=== PATIENT | female | born 1930 | race Caucasian/White ===

== ENCOUNTER 2017-01-05 01:06 | Inpatient (IN) | payer OTHER, MEDICARE ==
[~2017-01-05] VITALS: Ht 165.1 cm; Wt 68.0 kg
[2017-01-05] MEDS ORDERED: AMLODIPINE BESYL5 M1 PO (01:38)
[2017-01-05] MEDS ORDERED: BYSTOLIC10 M1 PO (01:39)
[2017-01-05] MEDS ORDERED: ASPIRIN81 M4 PO (01:39)
--- NOTE | 2017-01-05 01:41 | NUR ---
TRIAGE: PATIENT TO ER FROM HOME REPORTING S/P "FORCEFUL BM ON WEDNESDAY AND HAVING ENTIRE ABD PAIN SINCE." PATIENT ALSO REPORTS "THINK I HAVE BEEN LEAKING STOOL SINCE." REPORTING +NAUSEA AT THIS TIME, DENIES VOMITTING. +DIARRHEA, TOOK OTC LAXATIVE "THINKING I HAD TO GO AGAIN." DENIES URINARY DIFFICULTIES.
--- NOTE | 2017-01-05 01:50 | ED GI/GU/ABDOMINAL COMPLAINT ---
History of Present Illness General Chief Complaint: Abdominal Pain/Flank Pain Stated Complaint: ABD PAIN Source: patient, family Exam Limitations: no limitations Vital Signs & Intake/Output Vital Signs & Intake/Output Vital Signs Date Time Temp Pulse Resp B/P B/P Pulse O2 O2 Flow FiO2 Mean Ox Delivery Rate 01/05 0511 98.3 83 18 142/74 97 Room Air 01/05 0145 97.6 85 18 145/70 96 Room Air Allergies Coded Allergies: NO KNOWN ALLERGIES (01/05/17) Reconcile Medications Amlodipine Besylate 5 MG TABLET 1 TAB PO DAILY HTN (Reported) Aspirin (Aspirin*) 81 MG TAB.CHEW 1 TAB PO DAILY HEART (Reported) Nebivolol HCl (Bystolic) 10 MG TABLET 1 TAB PO DAILY (Reported) Triage Note: TRIAGE: PATIENT TO ER FROM HOME REPORTING S/P "FORCEFUL BM ON WEDNESDAY AND HAVING ENTIRE ABD PAIN SINCE." PATIENT ALSO REPORTS "THINK I HAVE BEEN LEAKING STOOL SINCE." REPORTING +NAUSEA AT THIS TIME, DENIES VOMITTING. +DIARRHEA, TOOK OTC LAXATIVE "THINKING I HAD TO GO AGAIN." DENIES URINARY DIFFICULTIES. Triage Nurses Notes Reviewed? yes ? N Is pt currently ? No Onset: Abrupt Duration: day(s): (3) Timing: recent history No Modifying Factors: none Associated Symptoms: abdominal pain HPI: This is an 86-year-old female who presents to the ER with her sister for chief complaint of 3 days of persistent lower abdominal pain after having a very large bowel movement on Wednesday. Patient denies any blood in her stool. She has been nauseous but has not vomited. She states she feels hunger but is afraid to eat. Since the episode on Wednesday she has been incontinent of urine. She is also been incontinent of stool. She denies any fever or chills. No radiation of the pain. She states the pain in his her left and right lower quadrants. Past History Travel History Traveled to [place] past 21 day No Medical History Any Pertinent Medical History? 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 No Review of Systems Review of Systems Constitutional: Denies: chills, fever. EENTM: Reports: no symptoms. Respiratory: Denies: cough, short of breath. Cardiovascular: Denies: chest pain. GI: Reports: abdominal pain, constipation, nausea. Denies: vomiting. Genitourinary: Reports: no symptoms. Musculoskeletal: Denies: back pain. Skin: Reports: no symptoms. Neurological/Psychological: Reports: no symptoms. Hematologic/Endocrine: Denies: bruising, bleeding, polyuria, polydipsia. Immunologic/Allergic: Denies: splenectomy. All Other Systems: Reviewed and Negative Physical Exam Physical Exam General Appearance: well developed/nourished, alert, awake Head: atraumatic, normal appearance Eyes: Bilateral: normal appearance, PERRL, EOMI. Ears, Nose, Throat, Mouth: hearing grossly normal, moist mucous membrane Neck: normal inspection, supple, full range of motion Respiratory: normal breath sounds, chest non-tender, no respiratory distress Cardiovascular: regular rate/rhythm Gastrointestinal: normal bowel sounds, soft, tenderness (SUPRAPUBIC/LLQ) Extremities: normal range of motion Neurologic/Psych: no motor/sensory deficits, awake, alert, oriented x 3 Progress Differential Diagnosis: diverticulitis, perforated viscous, SBO Plan of Care: Orders Procedure Date/time Status Admit to inpatient 01/05 0537 Active LACTIC ACID 01/05 0457 Active TYPE & SCREEN (NOT X-MATCH) 01/05 443 Active URINALYSIS 01/05 157 Complete LACTIC ACID 01/05 157 Complete COMPREHENSIVE METABOLIC PANEL 01/05 157 Complete CBC WITHOUT DIFFERENTIAL 01/05 157 Complete Laboratory Tests 01/05/17 0443: Lactic Acid Pending 01/05/17 0340: Urinalysis LIGHT H, Urine Color YEL, Urine Clarity CLEAR, Urine pH 6.0, Ur Specific [place] 1.025, Urine Protein 30 H, Urine Ketones NEG, Urine Nitrite NEG, Urine Bilirubin NEG, Urine Urobilinogen 0.2, Ur Leukocyte Esterase NEG, Ur Microscopic SEDIMENT EXAMINED, Urine RBC 1-3, Urine WBC 1-3 H, Ur Epithelial Cells FEW, Urine Bacteria RARE H, Urine Mucus FEW, Urine Hemoglobin MOD H, Urine Glucose NEG 01/05/17 0205: Anion Gap 9, Estimated GFR 47 L, BUN/Creatinine Ratio 17.3, Glucose 145 H, Lactic Acid 0.9, Calcium 9.1, Total Bilirubin 0.4, AST 24, ALT 28, Alkaline Phosphatase 60, Total Protein 6.7, Albumin 4.1, Globulin 2.6, Albumin/Globulin Ratio 1.6, CBC w Diff NO MAN DIFF REQ, RBC 4.24, MCV 89.5, MCH 30.3, RDW 14.5, MPV 8.3, Gran % 81.7 H, Lymphocytes % 8.7 L, Monocytes % 7.8, Eosinophils % 1.5, Basophils % 0.3, Absolute Granulocytes 9.4 H, Absolute Lymphocytes 1.0 L, Absolute Monocytes 0.9 H, Absolute Eosinophils 0.2, Absolute Basophils 0, PUBS MCHC 33.8 4:30 AM D/W DR ACEVES. SURGICAL PA PAGED. CT CONSISTENT WITH SIGMOID VOLVULUS. 5:06 AM D/W DR AMIE JIMENEZ - WILL CONSULT ON PATIENT. (MAYANK JOHNSON,RAFFI) Diagnostic Imaging: Viewed by Me: CT Scan. Discussed w/RAD: CT Scan. Radiology Impression: PATIENT: SULLY CARROLL PRESENT AGE: 86 PATIENT ACCOUNT NO: [id number] : [birth year] LOCATION: [facility] ORDERING PHYSICIAN: RAFFI SHAH MD SERVICE DATE: 01/05/17 EXAM TYPE: CAT - CT ABD & PELVIS W IV CONTRAST EXAMINATION: CT ABDOMEN AND PELVIS WITH CONTRAST CLINICAL INFORMATION: Lower abdominal pain COMPARISON: None TECHNIQUE: Multidetector volumetric imaging was performed of the abdomen and pelvis before and after the IV administration of 95 mL of Optiray intravenous contrast. Sagittal and coronal reformatted images were obtained on the technologist's workstation. DLP: 463.81 mGy-cm FINDINGS: LUNG BASES: The visualized lung bases are unremarkable. LIVER, GALLBLADDER, AND BILIARY TREE: There is intrahepatic and extra hepatic bile duct dilatation. Patient status post cholecystectomy. PANCREAS: Unremarkable. SPLEEN: Unremarkable. ADRENAL GLANDS: Unremarkable. KIDNEYS AND URETERS: Pedunculated cortical cyst at the upper pole right kidney measuring 5.9 cm. There are smaller cortical cysts bilateral. There are parapelvic cysts bilateral greater on left than right. No renal or ureteral calculus. No hydronephrosis. BLADDER: Unremarkable. GASTROINTESTINAL TRACT: The sigmoid colon is redundant and there is a sigmoid volvulus. This volvulus extends up into the right upper quadrant of the abdomen anterior to the liver extending of the right diaphragm is elevated. There is some fluid around this bowel loop of the bowel loop is not dilated. There are diverticula of the sigmoid. There is no free air. In the pelvis there is fluid and stool in the rectum and sigmoid and there is fluid in the cul-de-sac. The wall the rectum and sigmoid may be edematous but difficult to assess the presence of fluid. There is marked diverticulosis of the descending colon in the pelvis without diverticulitis. Moderate volume of stool in colon. The appendix is normal. The small bowel loops are normal. ABDOMINAL WALL: No significant hernia is appreciated. LYMPH NODES: Normal. VASCULAR: Extensive atherosclerotic vascular calcifications of the aorta and iliac vessels. PELVIC VISCERA: Small amount of fluid in the endometrial cavity. Endometrial cavity measures 1 cm in diameter. In a patient of this age further evaluation of the endometrium should be considered. OSSEOUS STRUCTURES: Multilevel degenerative change of the spine disc height narrowing and endplate spurs and facet joint arthrosis. Compression deformity inferior endplate of L3 appears chronic with sclerosis of the subchondral bone. IMPRESSION: 1. Sigmoid volvulus with no evidence of possible ischemia by the presence of fluid in the peritoneal cavity. Edema and fluid around the distal rectum sigmoid in the pelvis as well. 2. Marked diverticulosis of colon without diverticulitis. 3. Fluid in the endometrial cavity. In a patient of this age further assessment should be considered. This critical result was discussed with Dr. Shah on 01/05/2017, 4:10 AM and it was ascertained that the content and urgency of the report was understood at the time of direct communication. DICTATED BY: AKIL ESQUIVEL MD DATE/TIME DICTATED:355 SCREEN WRITER:PIETRO DATE/TIME TRANSCRIBED:01/05/17355 CONFIDENTIAL, DO NOT COPY WITHOUT APPROPRIATE AUTHORIZATION. <Electronically signed in Other Vendor System> SIGNED BY: AKIL ESQUIVEL MD 01/05/17 0418 Initial ED EKG: none Departure Departure Time of Disposition: 536 Disposition: STILL A PATIENT Condition: Stable Clinical Impression Primary Impression: Volvulus of sigmoid colon Referrals: MARE JOHNSON,CED [place] (PCP/Family) Departure Forms: Customer Survey General Discharge Information Admission Note Spoke With: KETAN JOHNSON,PETER N. Documentation of Exam: Documentation of any treatments & extenuating circumstances including Concerns Regarding Discharge (functional status, medication knowledge or non-compliance, living conditions, etc.) that warrant an admission rather than observation: [IV FLUIDS, NPO, GI CONSULT DR JIMENEZ, POSSIBLE OR]
--- NOTE | 2017-01-05 01:55 | NUR ---
STONEY BY DR TALLEY
--- NOTE | 2017-01-05 02:00 | NUR ---
LABS[facility]AN--SST,BLUE,YOUNG,LAV ALL SENT TO LAB
--- NOTE | 2017-01-05 02:10 | NUR ---
IV INSERTED MORPHINE GIVEN ORDERED.
[2017-01-05 02:24] LABS: ABSOLUTE BASOPHIL COUNT 0 /CUMM (0.0-0.2); ABSOLUTE EOSINOPHIL COUNT 0.2 /CUMM (0.0-0.7); ABSOLUTE GRANULOCYTE CT 9.4 /CUMM (1.4-6.5); ABSOLUTE MONOCYTE COUNT 0.9 /CUMM (0.10-0.60); BASOPHIL % 0.3 % (0.0-2.0); EOSINOPHIL % 1.5 % (0-5); GRANULOCYTE % 81.7 % (42.2-75.2); MEAN CORPUSCULAR HGB 30.3 PG (27.0-31.0); MEAN CORPUSCULAR HGB CONC 33.8 G/DL (33.0-37.0); MEAN CORPUSCULAR VOLUME 89.5 FL (81.0-99.0); MEAN PLATELET VOLUME 8.3 FL (7.4-10.4); PLATELET COUNT 264 /CUMM (130-400); RBC DISTRIBUTION WIDTH 14.5 % (11.5-14.5); RED BLOOD CELL CT 4.24 /CUMM (4.20-5.40); WHITE BLOOD CELL COUNT 11.5 /CUMM (4.8-10.8)
--- NOTE | 2017-01-05 03:16 | NUR ---
PT TO CAT SCAN
--- NOTE | 2017-01-05 03:30 | NUR ---
RETD FROM CT
--- NOTE | 2017-01-05 03:47 | NUR ---
OOB TO BR==VOIDED SPEC X 3 TO LAB
--- NOTE | 2017-01-05 04:18 | CT SCAN REPORT ---
EXAMINATION: CT ABDOMEN AND PELVIS WITH CONTRAST CLINICAL INFORMATION: Lower abdominal pain COMPARISON: None TECHNIQUE: Multidetector volumetric imaging was performed of the abdomen and pelvis before and after the IV administration of 95 mL of Optiray intravenous contrast. Sagittal and coronal reformatted images were obtained on the technologist's workstation. DLP: 463.81 mGy-cm FINDINGS: LUNG BASES: The visualized lung bases are unremarkable. LIVER, GALLBLADDER, AND BILIARY TREE: There is intrahepatic and extra hepatic bile duct dilatation. Patient status post cholecystectomy. PANCREAS: Unremarkable. SPLEEN: Unremarkable. ADRENAL GLANDS: Unremarkable. KIDNEYS AND URETERS: Pedunculated cortical cyst at the upper pole right kidney measuring 5.9 cm. There are smaller cortical cysts bilateral. There are parapelvic cysts bilateral greater on left than right. No renal or ureteral calculus. No hydronephrosis. BLADDER: Unremarkable. GASTROINTESTINAL TRACT: The sigmoid colon is redundant and there is a sigmoid volvulus. This volvulus extends up into the right upper quadrant of the abdomen anterior to the liver extending of the right diaphragm is elevated. There is some fluid around this bowel loop of the bowel loop is not dilated. There are diverticula of the sigmoid. There is no free air. In the pelvis there is fluid and stool in the rectum and sigmoid and there is fluid in the cul-de-sac. The wall the rectum and sigmoid may be edematous but difficult to assess the presence of fluid. There is marked diverticulosis of the descending colon in the pelvis without diverticulitis. Moderate volume of stool in colon. The appendix is normal. The small bowel loops are normal. ABDOMINAL WALL: No significant hernia is appreciated. LYMPH NODES: Normal. VASCULAR: Extensive atherosclerotic vascular calcifications of the aorta and iliac vessels. PELVIC VISCERA: Small amount of fluid in the endometrial cavity. Endometrial cavity measures 1 cm in diameter. In a patient of this age further evaluation of the endometrium should be considered. OSSEOUS STRUCTURES: Multilevel degenerative change of the spine disc height narrowing and endplate spurs and facet joint arthrosis. Compression deformity inferior endplate of L3 appears chronic with sclerosis of the subchondral bone. IMPRESSION: 1. Sigmoid volvulus with no evidence of possible ischemia by the presence of fluid in the peritoneal cavity. Edema and fluid around the distal rectum sigmoid in the pelvis as well. 2. Marked diverticulosis of colon without diverticulitis. 3. Fluid in the endometrial cavity. In a patient of this age further assessment should be considered. This critical result was discussed with Dr. Shah on 01/05/2017, 4:10 AM and it was ascertained that the content and urgency of the report was understood at the time of direct communication.
--- NOTE | 2017-01-05 04:20 | NUR ---
DR TALLEY IN TO RE EVAL AND DISCUSS CT RESULTS.
--- NOTE | 2017-01-05 05:00 | NUR ---
CO ABD PAIN "COMING AND GOING" DR TALLEY AWARE. IV ACETAMINOPHEN ORDERED
--- NOTE | 2017-01-05 05:10 | NUR ---
SURG PA HERE TO EVAL
[2017-01-05] MEDS ORDERED: POLYETHYLENE G255 GM PO (05:56)
[2017-01-05] MEDS ORDERED: METAMUCIL FIBE3.4 GM PO (05:57)
--- NOTE | 2017-01-05 06:04 | Admission Core Measures ---
Admission Lab Results I reviewed the following labs: Laboratory Tests 01/05 01/05 0443 0340 Chemistry Lactic Acid (0.7 - 2.1 mmol/L) 0.8 Urines Urinalysis LIGHT H Urine Color (YEL,AMB,STR) YEL Urine Clarity (CLEAR) CLEAR Urine pH (5.0 - 8.0) 6.0 Ur Specific [place] (1.001 - 1.035) 1.025 Urine Protein (NEG,<30 MG/DL) 30 H Urine Ketones (NEG) NEG Urine Nitrite (NEG) NEG Urine Bilirubin (NEG) NEG Urine Urobilinogen (0.1 - 1.0 EU/dl) 0.2 Ur Leukocyte Esterase (NEG) NEG Ur Microscopic SEDIMENT EXAMINED Urine RBC (0 - 5 /HPF) 1-3 Urine WBC (0 - 2 /HPF) 1-3 H Ur Epithelial Cells (NONE,FEW) FEW Urine Bacteria (NEG/NONE) RARE H Urine Mucus (FEW,NONE) FEW Urine Hemoglobin (NEG) MOD H Urine Glucose (N MG/DL) NEG 01/05 0205 Chemistry Sodium (137 - 145 mmol/L) 133 L Potassium (3.5 - 5.1 mmol/L) 4.1 Chloride (98 - 107 mmol/L) 100 Carbon Dioxide (22 - 30 mmol/L) 23 Anion Gap (5 - 16) 9 BUN (7 - 17 mg/dL) 19 H Creatinine (0.5 - 1.0 mg/dL) 1.1 H Estimated GFR (>60 ml/min) 47 L BUN/Creatinine Ratio (7 - 25 %) 17.3 Glucose (65 - 99 mg/dL) 145 H Lactic Acid (0.7 - 2.1 mmol/L) 0.9 Calcium (8.4 - 10.2 mg/dL) 9.1 Total Bilirubin (0.2 - 1.3 mg/dL) 0.4 AST (14 - 36 U/L) 24 ALT (9 - 52 U/L) 28 Alkaline Phosphatase (<127 U/L) 60 Total Protein (6.3 - 8.2 g/dL) 6.7 Albumin (3.5 - 5.0 g/dL) 4.1 Globulin (1.9 - 4.2 gm/dL) 2.6 Albumin/Globulin Ratio (1.1 - 2.2 %) 1.6 Hematology CBC w Diff NO MAN DIFF REQ WBC (4.8 - 10.8 /CUMM) 11.5 H RBC (4.20 - 5.40 /CUMM) 4.24 Hgb (12.0 - 16.0 G/DL) 12.8 Hct (37 - 47 %) 38.0 MCV (81.0 - 99.0 FL) 89.5 MCH (27.0 - 31.0 PG) 30.3 RDW (11.5 - 14.5 %) 14.5 Plt Count (130 - 400 /CUMM) 264 MPV (7.4 - 10.4 FL) 8.3 Gran % (42.2 - 75.2 %) 81.7 H Lymphocytes % (20.5 - 51.1 %) 8.7 L Monocytes % (1.7 - 9.3 %) 7.8 Eosinophils % (0 - 5 %) 1.5 Basophils % (0.0 - 2.0 %) 0.3 Absolute Granulocytes (1.4 - 6.5 /CUMM) 9.4 H Absolute Lymphocytes (1.2 - 3.4 /CUMM) 1.0 L Absolute Monocytes (0.10 - 0.60 /CUMM) 0.9 H Absolute Eosinophils (0.0 - 0.7 /CUMM) 0.2 Absolute Basophils (0.0 - 0.2 /CUMM) 0 PUBS MCHC (33.0 - 37.0 G/DL) 33.8 Admission Meds I reviewed the following Meds: Current Medications Sig/Felipe Start time Last Medication Dose Stop Time Status Admin Amlodipine Besylate 5 MG DAILY 01/05 1000 UNVr (Norvasc) Dextrose/Sodium 1,000 ML Q13H 01/05 0600 UNVr Chloride (D5W-1/2 Normal Saline 1000ML) Heparin Sodium 5,000 UNIT Q8 01/05 0600 UNVr (Porcine) Morphine Sulfate 2 MG Q3P PRN 01/05 0600 UNVr (Morphine) Nebivolol 10 MG DAILY 01/05 1000 UNVr (Bystolic) Ondansetron HCl 4 MG Q6P PRN 01/05 0600 UNVr (Zofran) Acute Coronary Syndrome Inclusion Criteria ACS Diagnosis No Inpatient Core Measures LDL Reminder: If No, please order W/I first 24hr of stay Congestive Heart Failure Inclusion Criteria CHF Diagnosis No Cerebrovascular accident Inclusion Criteria CVA/TIA Diagnosis No Inpatient Core Measures Bedside Swallow Eval Reminder: If BSE failed, place ST order Antithrombotic Reminder: Order Antithrombotic Medication by end of day 2 Antithrombotic Reminder: Document Reason Antithrombotic Not ordered by end of day 2 AFIB/Flutter Reminder: If Present, add to problem list AFIB/Flutter Reminder: Order Anticoag Medication for pts with AFIB/Flutter Atherosclerosis Reminder: If Present, add to problem list LDL Reminder: If No, please order W/I first 24hr of stay PT Order Reminder: If No, please order Venous thromboembolism Inpatient Core Measures VTE Risk Factors: Acute medical illness, Age > 40, Surgery No [facility] VTE prophylaxis d/t No contraindications No VTE Pharm Prophylaxis d/t No contraindications Inclusion Criteria - Per Current guidelines, there needs to be overlap - treatment for the first 5 days of Warfarin therapy. - Parenteral Anticoagulation (IV or SC) needs to be - given along with Warfarin therapy. VTE Diagnosis No VTE Type NONE VTE Confirmed by (Test) NONE Problem List As ranked by this Provider includes Assessment & Plan 1. Volvulus of sigmoid colon HOME MEDS Home Med List Amlodipine Besylate 5 MG TABLET 1 TAB PO DAILY HTN (Reported) Aspirin (Aspirin*) 81 MG TAB.CHEW 1 TAB PO DAILY HEART (Reported) Nebivolol HCl (Bystolic) 10 MG TABLET 1 TAB PO DAILY (Reported) Polyethylene Glycol 3350 17 GRAM/DOSE POWDER 17 GM PO DAILY PRN CONSTIPATION (Reported) Psyllium Hydrophy Sugar Free (Metamucil Fiber Singles Packet) 3.4 GRAM POWD.PACK 1 PAC PO DAILY PRN CONSTIPATION (Reported)
--- NOTE | 2017-01-05 06:06 | History & Physical Pre-Op ---
General Information and HPI MD Statement: I have seen and personally examined SULLY CARROLL and documented this H&P. The patient is a 86 year old F who presented with a patient stated chief complaint of abdominal pain. Source of Information: patient, family Exam Limitations: patient's age History of Present Illness: Pt is an 86 yo F with a pmh significant for hypertrophic cardiomyopathy, hyperlipidemia, left bundle branch block, mitral regurgitation, arthritis, hard of hearing, who presented to the ED with complaints of abdominal pain 2 days. Patient states that she had a large, but difficult to pass, bowel movement on 01/03/17. She began to complain of generalized abdominal pain shortly thereafter. She has a history of constipation and attempted taking MiraLAX, with no relief. Pain at this time is still generalized, but most prominent in the left lower quadrant. She admits to some nausea but no vomiting. No flatus since onset of symptoms, but she has experienced a small amount of rectal incontinence. In retrospect, patient does admit to a similar episode of defecation followed by pain, which was self-limiting, about 6 months ago. She states that she underwent a colonoscopy about [address] Diaz, who told her that her bowel is very redundant and she would be unable to have effective colonoscopies in the future. Otherwise denies headache, dizziness, chest pain, shortness of breath, dysuria. Allergies/Medications Allergies: Coded Allergies: NO KNOWN ALLERGIES (01/05/17) Home Med list Amlodipine Besylate 5 MG TABLET 1 TAB PO DAILY HTN (Reported) Aspirin (Aspirin*) 81 MG TAB.CHEW 1 TAB PO DAILY HEART (Reported) Nebivolol HCl (Bystolic) 10 MG TABLET 1 TAB PO DAILY (Reported) Polyethylene Glycol 3350 17 GRAM/DOSE POWDER 17 GM PO DAILY PRN CONSTIPATION (Reported) Psyllium Hydrophy Sugar Free (Metamucil Fiber Singles Packet) 3.4 GRAM POWD.PACK 1 PAC PO DAILY PRN CONSTIPATION (Reported) Past History Medical History Neurological: NONE EENT: hearing loss Cardiovascular: cardiomyopathy, hypertension, hyperlipidemia, mitral regurgitation, LBBB Respiratory: NONE Gastrointestinal: NONE Hepatic: NONE Renal: NONE Musculoskeletal: arthritis Psychiatric: NONE Endocrine: NONE Blood Disorders: NONE Cancer(s): NONE NURSE TRANSITION/Reproductive: NONE Surgical History Pertinent Surgical History: cholecystectomy, RECTAL TEAR, tonsillectomy Past Family/Social History Psychosocial History Where Do You Live? Home Who Do You Live With? sister Smoking Status: Never Smoked ETOH Use: denies use Review of Systems Review of Systems: Positive for abdominal pain and nausea. She also has history of constipation. Negative for headache, dizziness, chest pain, shortness of breath, cough, congestion, vomiting, hematochezia, Exam & Diagnostic Data Last 24 Hrs of Vital Signs/I&O Vital Signs Date Time Temp Pulse Resp B/P B/P Pulse O2 O2 Flow FiO2 Mean Ox Delivery Rate 01/05 0511 98.3 83 18 142/74 97 Room Air 01/05 0145 97.6 85 18 145/70 96 Room Air Intake & Output 01/05 0800 01/05 0000 01/04 1600 Intake Total Output Total Balance Patient 150 lb Weight Weight Reported by Patient Measurement Method Physical Exam: Gen.: Patient is awake and alert. No acute distress. She is notably hard of hearing. Cardiac: Regular. There is a prominent diastolic murmur. Pulmonary: Lungs are clear to auscultation bilaterally. No wheezes or rales are appreciated. Abdomen: Soft and moderately distended. There is no tenderness to palpation at this time, however there is a palpable area of firmness in the supraumbilical/ right upper quadrant area. Normoactive bowel sounds are heard. Extremities: Trace bilateral lower extremity edema, greater on the left versus the right. No calf tenderness is appreciated. Last 24 Hrs of Labs/Brady: Laboratory Tests 01/05/17 0443: Lactic Acid 0.8 01/05/17 0340: Urinalysis LIGHT H, Urine Color YEL, Urine Clarity CLEAR, Urine pH 6.0, Ur Specific [place] 1.025, Urine Protein 30 H, Urine Ketones NEG, Urine Nitrite NEG, Urine Bilirubin NEG, Urine Urobilinogen 0.2, Ur Leukocyte Esterase NEG, Ur Microscopic SEDIMENT EXAMINED, Urine RBC 1-3, Urine WBC 1-3 H, Ur Epithelial Cells FEW, Urine Bacteria RARE H, Urine Mucus FEW, Urine Hemoglobin MOD H, Urine Glucose NEG 01/05/17 0205: Anion Gap 9, Estimated GFR 47 L, BUN/Creatinine Ratio 17.3, Glucose 145 H, Lactic Acid 0.9, Calcium 9.1, Total Bilirubin 0.4, AST 24, ALT 28, Alkaline Phosphatase 60, Total Protein 6.7, Albumin 4.1, Globulin 2.6, Albumin/Globulin Ratio 1.6, CBC w Diff NO MAN DIFF REQ, RBC 4.24, MCV 89.5, MCH 30.3, RDW 14.5, MPV 8.3, Gran % 81.7 H, Lymphocytes % 8.7 L, Monocytes % 7.8, Eosinophils % 1.5, Basophils % 0.3, Absolute Granulocytes 9.4 H, Absolute Lymphocytes 1.0 L, Absolute Monocytes 0.9 H, Absolute Eosinophils 0.2, Absolute Basophils 0, PUBS MCHC 33.[address] Diagnostic Data Other Results CT scan of abdomen and pelvis revealed: 1. Sigmoid volvulus with no evidence of possible ischemia by the presence of fluid in the peritoneal cavity. Edema and fluid around the distal rectum sigmoid in the pelvis as well. 2. Marked diverticulosis of colon without diverticulitis. 3. Fluid in the endometrial cavity. In a patient of this age further assessment should be considered. Assessment/Plan Assessment/Plan: Pt is an 86 yo F with a pmh significant for hypertrophic cardiomyopathy, hyperlipidemia, left bundle branch block, mitral regurgitation, arthritis, hard of hearing who presents with abdominal pain due to sigmoid volvulus. Patient remains hemodynamically stable at this time. There is no significant leukocytosis and lactic acid is normal. Plan: -Admit to general under Kar Millan MD service. -GI consult by Dr. Mcclendon is pending. Patient's usual el teacher is Dr. Diaz. -Keep nothing by mouth with conservative rate of IV fluids, as patient has a known cardiomyopathy, and I am not aware of her EF. -Pain control with IV morphine and acetaminophen as needed. -Protonix for GI prophylaxis. -Subcutaneous heparin and Alps for DVT prophylaxis. -Resume home meds, including beta nadiya. -Pt is reluctant to proceed with operative intervention due to her age. She does understand that less invasive endoscopic procedure may not be possible, but this will be decided by GI. Eval by Dr. Millan to follow as well. We will contact Dr. Florian and Dr. Lowery later today, as per her request, and for co- management. As Ranked By This Provider Problem List: 1. Volvulus of sigmoid colon
--- NOTE | 2017-01-05 06:50 | NUR ---
PT BED ASSIGNMENT [id number]
--- NOTE | 2017-01-05 07:37 | NUR ---
PT TO FLOOR
[2017-01-05 08:00] VITALS: BP 130/80
--- NOTE | 2017-01-05 08:57 | PN- Att Addend ---
Attending Addendum Attending Brief Note Medical attending note. 86-year-old lady well known to me with history of hypertrophic cardiomyopathy hypertension left bundle branch block presents to ER with chief complaint of abdominal pain for the past 2 days. Apparently she was constipated and she took MiraLAX. Subsequently she'll upper his severe mid abdominal pain which was severe in intensity and radiating into the back. There was no fever no nausea no vomiting. In the ER as part of the workup involving abdominal pain she had a CAT scan done which shows sigmoid volvulus without any evidence of ischemia. History of colonoscopy 10 years ago. This is essentially normal. She doesn't have any other symptoms. Intake & Output 01/05 1600 01/05 0800 01/05 0000 Intake Total 1000 Output Total Balance 1000 Intake, IV 1000 Patient 150 lb Weight Weight Reported by Patient Measurement Method Current Medications Sig/Felipe Start time Last Medication Dose Route Stop Time Status Admin Acetaminophen 1,000 MG Q6P PRN 01/05 1200 AC N/A 1 UNIT IV Acetaminophen 1,000 MG ONCE ONE 01/05 0515 DC 01/05 N/A 1 UNIT IV 01/05 0529 0511 Acetaminophen 0 .STK-MED ONE 01/05 0514 DC IV Amlodipine Besylate 5 MG DAILY 01/05 1000 AC PO Dextrose/Sodium 1,000 ML Q13H 01/05 0600 AC 01/05 Chloride IV 0700 Heparin Sodium 0 .STK-MED ONE 01/05 0717 DC (Porcine) .ROUTE Heparin Sodium 5,000 UNIT Q8 01/05 0600 AC 01/05 (Porcine) SC 0716 Morphine Sulfate 2 MG Q3P PRN 01/05 0600 AC IV Morphine Sulfate 0 .STK-MED ONE 01/05 0218 DC .ROUTE Morphine Sulfate 2 MG ONCE ONE 01/05 0215 DC 01/05 IV 01/05 0216 0214 Nebivolol 10 MG DAILY 01/05 1000 AC PO Ondansetron HCl 4 MG Q6P PRN 01/05 0600 AC IV Ondansetron HCl 4 MG ONCE ONE 01/05 0230 DC 01/05 IV 01/05 0231 0217 Ondansetron HCl 0 .STK-MED ONE 01/05 0222 DC .ROUTE Pantoprazole Sodium 40 MG DAILY 01/05 1000 AC IV Sodium Chloride 500 ML BOLUS ONE 01/05 0315 DC 01/05 IV 01/05 0414 0351 Laboratory Tests 01/05 01/05 0443 0340 Chemistry Lactic Acid (0.7 - 2.1 mmol/L) 0.8 Urines Urinalysis LIGHT H Urine Color (YEL,AMB,STR) YEL Urine Clarity (CLEAR) CLEAR Urine pH (5.0 - 8.0) 6.0 Ur Specific [place] (1.001 - 1.035) 1.025 Urine Protein (NEG,<30 MG/DL) 30 H Urine Ketones (NEG) NEG Urine Nitrite (NEG) NEG Urine Bilirubin (NEG) NEG Urine Urobilinogen (0.1 - 1.0 EU/dl) 0.2 Ur Leukocyte Esterase (NEG) NEG Ur Microscopic SEDIMENT EXAMINED Urine RBC (0 - 5 /HPF) 1-3 Urine WBC (0 - 2 /HPF) 1-3 H Ur Epithelial Cells (NONE,FEW) FEW Urine Bacteria (NEG/NONE) RARE H Urine Mucus (FEW,NONE) FEW Urine Hemoglobin (NEG) MOD H Urine Glucose (N MG/DL) NEG 01/05 0205 Chemistry Sodium (137 - 145 mmol/L) 133 L Potassium (3.5 - 5.1 mmol/L) 4.1 Chloride (98 - 107 mmol/L) 100 Carbon Dioxide (22 - 30 mmol/L) 23 Anion Gap (5 - 16) 9 BUN (7 - 17 mg/dL) 19 H Creatinine (0.5 - 1.0 mg/dL) 1.1 H Estimated GFR (>60 ml/min) 47 L BUN/Creatinine Ratio (7 - 25 %) 17.3 Glucose (65 - 99 mg/dL) 145 H Lactic Acid (0.7 - 2.1 mmol/L) 0.9 Calcium (8.4 - 10.2 mg/dL) 9.1 Total Bilirubin (0.2 - 1.3 mg/dL) 0.4 AST (14 - 36 U/L) 24 ALT (9 - 52 U/L) 28 Alkaline Phosphatase (<127 U/L) 60 Total Protein (6.3 - 8.2 g/dL) 6.7 Albumin (3.5 - 5.0 g/dL) 4.1 Globulin (1.9 - 4.2 gm/dL) 2.6 Albumin/Globulin Ratio (1.1 - 2.2 %) 1.6 Hematology CBC w Diff NO MAN DIFF REQ WBC (4.8 - 10.8 /CUMM) 11.5 H RBC (4.20 - 5.40 /CUMM) 4.24 Hgb (12.0 - 16.0 G/DL) 12.8 Hct (37 - 47 %) 38.0 MCV (81.0 - 99.0 FL) 89.5 MCH (27.0 - 31.0 PG) 30.3 RDW (11.5 - 14.5 %) 14.5 Plt Count (130 - 400 /CUMM) 264 MPV (7.4 - 10.4 FL) 8.3 Gran % (42.2 - 75.2 %) 81.7 H Lymphocytes % (20.5 - 51.1 %) 8.7 L Monocytes % (1.7 - 9.3 %) 7.8 Eosinophils % (0 - 5 %) 1.5 Basophils % (0.0 - 2.0 %) 0.3 Absolute Granulocytes (1.4 - 6.5 /CUMM) 9.4 H Absolute Lymphocytes (1.2 - 3.4 /CUMM) 1.0 L Absolute Monocytes (0.10 - 0.60 /CUMM) 0.9 H Absolute Eosinophils (0.0 - 0.7 /CUMM) 0.2 Absolute Basophils (0.0 - 0.2 /CUMM) 0 PUBS MCHC (33.0 - 37.0 G/DL) 33.8 Vital Signs Date Time Temp Pulse Resp B/P B/P Pulse O2 O2 Flow FiO2 Mean Ox Delivery Rate 01/05 0800 98.1 80 18 130/80 97 Room Air / 0717 97.9 82 18 138/80 97 Room Air 07/ 0511 98.3 83 18 142/74 97 Room Air 07/04 0145 97.6 85 18 145/70 96 Room Air Intake & Output 01/05 1600 01/05 0800 01/05 0000 Intake Total 1000 Output Total Balance 1000 Intake, IV 1000 Patient 150 lb Weight Weight Reported by Patient Measurement Method On examination Patient is awake alert oriented lying comfortably in bed. Conjunctivae is pink sclerae anicteric anicteric Mucous membrane is moist Neck is supple, JVD is not raised S1-S2 is normal 3 x 6 harsh systolic murmur over the precordium Lungs diminished air entry equal bilaterally Abdomen is soft tenderness in the lower abdomen with some mild rebound bowel sounds are present No calf tenderness present. CAT scan of the abdomen and pelvis. IMPRESSION: 1. Sigmoid volvulus with no evidence of possible ischemia by the presence of fluid in the peritoneal cavity. Edema and fluid around the distal rectum sigmoid in the pelvis as well. 2. Marked diverticulosis of colon without diverticulitis. 3. Fluid in the endometrial cavity. In a patient of this age further assessment should be considered. This critical result was discussed with Dr. Shah on 01/05/2017, 4:10 AM and it was ascertained that the content and urgency of the report was understood at the time of direct communication. Assessment . Sigmoid volvulus Patient admitted to surgical service If she is going for surgery she is a moderate risk Will do cardiac enzymes postop 3 Prevent dehydration EKG postop Cardiology evaluation DVT prophylaxis
--- NOTE | 2017-01-05 09:49 | Cons- Gastroenterology ---
General Information and HPI Consulting Request Date of Consult: 01/05/17 (MD PAYAL/GASTROENTEROLOGY) Requested By: KETAN JOHNSON,PETER Larson Reason for Consult: Sigmoid volvulus Source of Information: patient History of Present Illness: 86-year-old female who had the acute onset of diffuse abdominal pain 3 days ago, following a large bowel movement. The patient has been there since, waxing and waning. She had a similar, brief episode several months ago. Today she has mild nausea. She has had no vomiting, blood per rectum, fever, chills or sweats. She had a small bowel movement yesterday morning, but has not passed flatus since then. Her abdomen feels slightly distended. The patient usually does not have pain or indigestion. She moves her bowels daily with the help of Metamucil and PEG-3350. She had a colonoscopy approximately 10 years ago after which she was told her colon was redundant, and that the procedure could not be completed. Allergies/Medications Allergies: Coded Allergies: NO KNOWN ALLERGIES (01/05/17) Home Med List: Amlodipine Besylate 5 MG TABLET 1 TAB PO DAILY HTN (Reported) Aspirin (Aspirin*) 81 MG TAB.CHEW 1 TAB PO DAILY HEART (Reported) Nebivolol HCl (Bystolic) 10 MG TABLET 1 TAB PO DAILY (Reported) Polyethylene Glycol 3350 17 GRAM/DOSE POWDER 17 GM PO DAILY PRN CONSTIPATION (Reported) Psyllium Hydrophy Sugar Free (Metamucil Fiber Singles Packet) 3.4 GRAM POWD.PACK 1 PAC PO DAILY PRN CONSTIPATION (Reported) Current Medications: Current Medications Sig/Felipe Start time Last Medication Dose Route Stop Time Status Admin Acetaminophen 1,000 MG Q6P PRN 01/05 1200 AC N/A 1 UNIT IV Acetaminophen 1,000 MG ONCE ONE 01/05 0515 DC 01/05 N/A 1 UNIT IV 01/05 0529 0511 Acetaminophen 0 .STK-MED ONE 01/05 0514 DC IV Amlodipine Besylate 5 MG DAILY 01/05 1000 AC PO Dextrose/Sodium 1,000 ML Q13H 01/05 0600 AC 01/05 Chloride IV 0700 Heparin Sodium 0 .STK-MED ONE 01/05 0717 DC (Porcine) .ROUTE Heparin Sodium 5,000 UNIT Q8 01/05 0600 AC 01/05 (Porcine) SC 0716 Morphine Sulfate 2 MG Q3P PRN 01/05 0600 AC IV Morphine Sulfate 0 .STK-MED ONE 01/05 0218 DC .ROUTE Morphine Sulfate 2 MG ONCE ONE 01/05 0215 DC 01/05 IV 01/05 0216 0214 Nebivolol 10 MG DAILY 01/05 1000 AC PO Ondansetron HCl 4 MG Q6P PRN 01/05 0600 AC IV Ondansetron HCl 4 MG ONCE ONE 01/05 0230 DC 01/05 IV 01/05 0231 0217 Ondansetron HCl 0 .STK-MED ONE 01/05 0222 DC .ROUTE Pantoprazole Sodium 40 MG DAILY 01/05 1000 AC IV Sodium Chloride 500 ML BOLUS ONE 01/05 0315 DC 01/05 IV 01/05 0414 0351 Past History Travel History Traveled to [place] past 21 day No Medical History Blood Transfusion Hx: No Neurological: NONE EENT: hearing loss Cardiovascular: cardiomyopathy, hypertension, hyperlipidemia, mitral regurgitation, LBBB Respiratory: NONE Gastrointestinal: NONE Hepatic: NONE Renal: NONE Musculoskeletal: arthritis Psychiatric: NONE Endocrine: NONE Blood Disorders: NONE Cancer(s): NONE ELECTRONIC TECH/Reproductive: NONE Surgical History Surgical History: cholecystectomy, RECTAL TEAR tonsillectomy Psychosocial History Where Do You Live? Home Who Do You Live With? sister Services at Home: None Smoking Status: Never Smoked ETOH Use: denies use Employment History Employment: Retired Profession/Employer: [employer] Review of Systems Review of Systems Constitutional: Denies: fever, unexplained weight loss. EENTM: Denies: icterus, epistaxis. Cardiovascular: Denies: chest pain, syncope. Respiratory: Denies: cough, short of breath. GI: Reports: see HPI. Genitourinary: Reports: dysuria. Denies: hematuria. Musculoskeletal: Denies: muscle stiffness, neck pain. Skin: Denies: jaundice, lesions. Neurological/Psychological: Denies: cognitive dysfunction, headache. Hematologic/Endocrine: Denies: bruising, bleeding. Exam & Diagnostic Data Vital Signs and I&O Vital Signs Date Time Temp Pulse Resp B/P B/P Pulse O2 O2 Flow FiO2 Mean Ox Delivery Rate 01/06 800 98.1 80 18 130/80 97 Room Air 01/05 0717 97.9 82 18 138/80 97 Room Air 01/05 0511 98.3 83 18 142/74 97 Room Air 01/05 0145 97.6 85 18 145/70 96 Room Air Intake & Output 01/05 1600 01/05 0400 01/04 0400 01/03 1600 01/03 0400 Intake Total 1000 Output Total Balance 1000 Intake, IV 1000 Patient 150 lb 150 lb Weight Weight Reported by Patient Reported by Patient Measurement Method Physical Exam: Well-nourished, elderly white female in no apparent distress. Calm and conversant. Normal cognition. Skin with multiple keratoses. No other lesion, rash, jaundice. Sclera anicteric. Edentulous with dentures. No oropharyngeal lesion. Neck supple without thyromegaly, masses, adenopathy. Heart regular rhythm with a 4/6 blowing holosystolic murmur. Lungs clear bilaterally. Abdomen is mildly distended with bowel sounds present; there is mild tenderness in the right upper quadrant and left lower quadrant, without fullness, mass or organomegaly. Extremities without cyanosis or edema; changes of DJD. Results Pertinent Lab Results: Laboratory Tests 01/05 01/05 0443 0340 Chemistry Lactic Acid (0.7 - 2.1 mmol/L) 0.8 Urines Urinalysis LIGHT H Urine Color (YEL,AMB,STR) YEL Urine Clarity (CLEAR) CLEAR Urine pH (5.0 - 8.0) 6.0 Ur Specific [place] (1.001 - 1.035) 1.025 Urine Protein (NEG,<30 MG/DL) 30 H Urine Ketones (NEG) NEG Urine Nitrite (NEG) NEG Urine Bilirubin (NEG) NEG Urine Urobilinogen (0.1 - 1.0 EU/dl) 0.2 Ur Leukocyte Esterase (NEG) NEG Ur Microscopic SEDIMENT EXAMINED Urine RBC (0 - 5 /HPF) 1-3 Urine WBC (0 - 2 /HPF) 1-3 H Ur Epithelial Cells (NONE,FEW) FEW Urine Bacteria (NEG/NONE) RARE H Urine Mucus (FEW,NONE) FEW Urine Hemoglobin (NEG) MOD H Urine Glucose (N MG/DL) NEG 01/05 0205 Chemistry Sodium (137 - 145 mmol/L) 133 L Potassium (3.5 - 5.1 mmol/L) 4.1 Chloride (98 - 107 mmol/L) 100 Carbon Dioxide (22 - 30 mmol/L) 23 Anion Gap (5 - 16) 9 BUN (7 - 17 mg/dL) 19 H Creatinine (0.5 - 1.0 mg/dL) 1.1 H Estimated GFR (>60 ml/min) 47 L BUN/Creatinine Ratio (7 - 25 %) 17.3 Glucose (65 - 99 mg/dL) 145 H Lactic Acid (0.7 - 2.1 mmol/L) 0.9 Calcium (8.4 - 10.2 mg/dL) 9.1 Total Bilirubin (0.2 - 1.3 mg/dL) 0.4 AST (14 - 36 U/L) 24 ALT (9 - 52 U/L) 28 Alkaline Phosphatase (<127 U/L) 60 Total Protein (6.3 - 8.2 g/dL) 6.7 Albumin (3.5 - 5.0 g/dL) 4.1 Globulin (1.9 - 4.2 gm/dL) 2.6 Albumin/Globulin Ratio (1.1 - 2.2 %) 1.6 Hematology CBC w Diff NO MAN DIFF REQ WBC (4.8 - 10.8 /CUMM) 11.5 H RBC (4.20 - 5.40 /CUMM) 4.24 Hgb (12.0 - 16.0 G/DL) 12.8 Hct (37 - 47 %) 38.0 MCV (81.0 - 99.0 FL) 89.5 MCH (27.0 - 31.0 PG) 30.3 RDW (11.5 - 14.5 %) 14.5 Plt Count (130 - 400 /CUMM) 264 MPV (7.4 - 10.4 FL) 8.3 Gran % (42.2 - 75.2 %) 81.7 H Lymphocytes % (20.5 - 51.1 %) 8.7 L Monocytes % (1.7 - 9.3 %) 7.8 Eosinophils % (0 - 5 %) 1.5 Basophils % (0.0 - 2.0 %) 0.3 Absolute Granulocytes (1.4 - 6.5 /CUMM) 9.4 H Absolute Lymphocytes (1.2 - 3.4 /CUMM) 1.0 L Absolute Monocytes (0.10 - 0.60 /CUMM) 0.9 H Absolute Eosinophils (0.0 - 0.7 /CUMM) 0.2 Absolute Basophils (0.0 - 0.2 /CUMM) 0 PUBS MCHC (33.0 - 37.0 G/DL) 33.8 Imaging/Other Studies: CT scan of the abdomen and pelvis demonstrates a sigmoid volvulus. Assessment/Plan Assessment/Recommendations: Sigmoid volvulus in a patient with chronic constipation and a described redundant colon. She has minor diffuse abdominal pain, mild nausea, and borderline leukocytosis. Her abdominal examination is benign. Recommendations * Nothing by mouth, IV fluids * Single tap water enema to evacuate rectum and rectosigmoid * Decompressive colonoscopy Copies To: MARE JOHNSON,CED [place]; KETAN JOHNSON,PETER [place]. Consult Acknowledgment - Thank you for your consult request.
--- NOTE | 2017-01-05 11:29 | Proc Note Colonoscopy ---
See Addendum Colonoscopy Procedure Procedure Date: 01/05/17 Procedure Type: colonoscopy with decompression Recreation Supervisor: Isiah Mcclendon M.D. ASA Classification: III (E) Indications: Sigmoid volvulus Instrument (Colonoscope): single channel Meds Received: MAC Patient's Tolerance: good Complications: none Extent Reached: 1 m Procedure: The patient signed informed consent, was placed in the Chacko position, and medicated. Examination of the rectum demonstrated external hemorrhoids. The Olympus high-definition variable stiffness colonoscope was inserted through the anus and advanced as follows: The rectum and distal sigmoid were grossly normal. The mucosa was intact. At approximately 25 cm was a tight sphincter-like narrowing; this was passed carefully with gentle pressure, minimal air insufflation, and water immersion. The torsion spontaneously released. The several centimeter area of the previous volvulus had minimally edematous mucosa without hyperemia, friability or duskiness. Proximal to this there was dilatation, and diverticulosis. The colonoscope was gently advanced to approximately 1 m, where solid stool was encountered. A guidewire was inserted, and the colonoscope removed. A decompression tube was advanced over the guidewire, and the wire and sheath were removed. Impression: * Sigmoid volvulus, reduced. No evidence of ischemia * Decompression tube inserted * Diverticulosis Recommendations: * Check abdominal x-ray to verify position of decompression tube * Clear liquid diet * Abdominal x-ray tomorrow CC: MARE JOHNSON,CED [place]; KETAN JOHNSON,PETER Larson
--- NOTE | 2017-01-05 12:48 | History & Physical Pre-Op ---
General Information and HPI Source of Information: patient Exam Limitations: patient's age History of Present Illness: CC: abdominal pain HPI: 86-year-old nondiabetic nonsmoker with heart disease hard of hearing, uses laxatives daily for chronic constipation had a very large bowel movement on Wednesday, and has had abdominal pain ever since her abdomen feels a little distended and she feels like she is leaking a little bit of stool since then today's Wednesday. She came to the ER because the pain was persistent, she had a similar episode a few months ago that resolved quickly. There is some associated nausea no vomiting, she is not hungry, no fevers no sweats no recent flu like symptoms or upper respiratory tract infections no bleeding per rectum. The abdominal discomfort is mostly left lower quadrant it's not worse on movement it doesn't radiate no dysuria its [id number]-ixjrziff in intensity. Her sister is here to help with the history. She had an attempted colonoscopy over 10 years ago and was told that her colon is too redundant. I've reviewed the [facility]. No history of GERD, PUD, bleeding problems, heart disease or issues with anesthesia. Family history is negative for diabetes cancer or heart disease. Past surgical history no prior abdominal surgery. Allergies/Medications Allergies: Coded Allergies: NO KNOWN ALLERGIES (01/05/17) Home Med list Amlodipine Besylate 5 MG TABLET 1 TAB PO DAILY HTN (Reported) Aspirin (Aspirin*) 81 MG TAB.CHEW 1 TAB PO DAILY HEART (Reported) Nebivolol HCl (Bystolic) 10 MG TABLET 1 TAB PO DAILY (Reported) Polyethylene Glycol 3350 17 GRAM/DOSE POWDER 17 GM PO DAILY PRN CONSTIPATION (Reported) Psyllium Hydrophy Sugar Free (Metamucil Fiber Singles Packet) 3.4 GRAM POWD.PACK 1 PAC PO DAILY PRN CONSTIPATION (Reported) Past History Medical History Blood Transfusion Hx: No Neurological: NONE EENT: hearing loss Cardiovascular: cardiomyopathy, hypertension, hyperlipidemia, mitral regurgitation, LBBB Respiratory: NONE Gastrointestinal: NONE Hepatic: NONE Renal: NONE Musculoskeletal: arthritis Psychiatric: NONE Endocrine: NONE Blood Disorders: NONE Cancer(s): NONE 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 Home Who Do You Live With? 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 Review of Systems Review of Systems: Constitutional: No fever, sweats or weight loss ENMT: No sore throat Cardiovascular: No chest pain, palpitations or leg swelling Respiratory: No shortness of breath, cough, or sputum or dyspnea on exertion GI: No GERD or bleeding per rectum : No dysuria or hematuria Musculoskeletal: No new muscle weakness, bone or joint pain Skin / Breast: No jaundice, rashes or itching Psychiatric: No history of drug or alcohol abuse no depression or anxiety Hematologic / lymphatic system: No problems with excessive bleeding, bruising, or blood clots Neuro: Hard of hearing Exam & Diagnostic Data Last 24 Hrs of Vital Signs/I&O I reviewed Vital Signs Date Time Temp Pulse Resp B/P B/P Pulse O2 O2 Flow FiO2 Mean Ox Delivery Rate 01/05 1002 80 130/80 01/05 1001 80 130/80 01/05 0800 98.1 80 18 130/80 97 Room Air 01/05 0717 97.9 82 18 138/80 97 Room Air 01/05 0511 98.3 83 18 142/74 97 Room Air / 0145 97.6 85 18 145/70 96 Room Air I reviewed Intake & Output 01/05 1600 01/05 0800 01/05 0000 Intake Total 1000 Output Total Balance 1000 Intake, IV 1000 Patient 150 lb Weight Weight Reported by Patient Measurement Method Physical Exam: Constitutional: pleasant, no acute distress, conversant Eyes: sclera anicteric ENMT: ears and nose atraumatic, moist mucous membranes, good dentition, no lip lesions Neck: Supple, trachea is midline, no cervical or supraclavicular adenopathy and no palpable thyromegaly Cardiovascular: S1, S2, no murmurs, no peripheral edema Respiratory: clear to auscultation with normal respiratory effort and no intercostal retractions GI: abdomen soft, mildly tender to palpation, palpable distended bowel in the epigastrium more on the right, no rebound, no palpable hepatosplenomegaly Extremities / lymphatics: symmetrically warm, free range of motion no peripheral edema, no cervical, supraclavicular, axillary, or inguinal adenopathy Musculoskeletal: Normal gait and station, no digital cyanosis, good muscle strength and tone no atrophy, motor grossly 5 out of 5 throughout Skin: no jaundice, no rashes warm, nondiaphoretic, no areas of erythema or induration Psychiatric: mood and affect are appropriate and alert and oriented to person place and time Last 24 Hrs of Labs/Brady: I reviewed Laboratory Tests 01/05/17 0443: Lactic Acid 0.8 01/05/17 0340: Urinalysis LIGHT H, Urine Color YEL, Urine Clarity CLEAR, Urine pH 6.0, Ur Specific [place] 1.025, Urine Protein 30 H, Urine Ketones NEG, Urine Nitrite NEG, Urine Bilirubin NEG, Urine Urobilinogen 0.2, Ur Leukocyte Esterase NEG, Ur Microscopic SEDIMENT EXAMINED, Urine RBC 1-3, Urine WBC 1-3 H, Ur Epithelial Cells FEW, Urine Bacteria RARE H, Urine Mucus FEW, Urine Hemoglobin MOD H, Urine Glucose NEG 01/05/17 0205: Anion Gap 9, Estimated GFR 47 L, BUN/Creatinine Ratio 17.3, Glucose 145 H, Lactic Acid 0.9, Calcium 9.1, Total Bilirubin 0.4, AST 24, ALT 28, Alkaline Phosphatase 60, Total Protein 6.7, Albumin 4.1, Globulin 2.6, Albumin/Globulin Ratio 1.6, CBC w Diff NO MAN DIFF REQ, RBC 4.24, MCV 89.5, MCH 30.3, RDW 14.5, MPV 8.3, Gran % 81.7 H, Lymphocytes % 8.7 L, Monocytes % 7.8, Eosinophils % 1.5, Basophils % 0.3, Absolute Granulocytes 9.4 H, Absolute Lymphocytes 1.0 L, Absolute Monocytes 0.9 H, Absolute Eosinophils 0.2, Absolute Basophils 0, PUBS MCHC 33.8 Assessment/Plan Assessment/Plan: I reviewed the CT scan from last night on PACS myself also compared it to a barium enema 2005, she is an obviously long redundant colon on the current film is a sigmoid volvulus there is stool in the rectum was no free fluid or obvious mesenteric edema or pneumatosis. Impression is sigmoid volvulus probably exacerbated by years of constipation laxatives and she has a long redundant sigmoid colon and may be a chronic intermittent episodic problem for her this is just a severe episode the plan is first have GI evaluate her to scope and hopefully detorsed because she is a high -risk surgical candidate because of her cardiac history she herself does not wish to have surgery, if this is unsuccessful we may have to reevaluate for surgery which would involve a colostomy at this point but otherwise it's preferable to resect this bowel some mild electively after bowel prep to avoid future recurrences the first we have to see what happens with the endoscopy how she recovers and will have to have her cardiac function evaluated by a urban gardening specialist. Presently no peritoneal signs recommend bowel rest IV fluids consider IV antibiotics serial exams serial labs. As Ranked By This Provider Problem List: 1. Volvulus of sigmoid colon 2. Abdominal pain 3. Heart disease
--- NOTE | 2017-01-05 13:14 | RADIOLOGY REPORT ---
EXAMINATION: XR ABDOMEN MULTIPLE VIEWS CLINICAL INDICATION: Post decompressive colonoscope for sigmoid volvulus. Follow-up. COMPARISON: CT 01/05/2017 at 3:16 AM TECHNIQUE: Upright and supine views of the abdomen FINDINGS: A long rectal tube is seen. This correlates multiple times in the central pelvis, presumably in the rectum and distal sigmoid colon, then extending cephalad and to the right, presumably within a redundant tortuous sigmoid colon. There is gas within prominent but not dilated small bowel and colon. Stool is seen in the right colon. No pneumoperitoneum. IMPRESSION: Along rectal tube is seen extending from the central pelvis cephalad into the right upper quadrant, presumably within redundant, tortuous sigmoid colon. There is gas within prominent but nondilated small bowel and colon. The previously seen dilated loop of colon in the right upper quadrant is no longer seen.
[2017-01-05 13:42] VITALS: BP 118/70
--- NOTE | 2017-01-05 19:51 | Cons- Cardiology ---
General Information and HPI Consulting Request Date of Consult: 01/05/17 Requested By: KETAN JOHNSON,PETER Larson Reason for Consult: Preoperative evaluation History of Present Illness: The patient is an 86-year-old female with history of hypertrophic cardiomyopathy , mitral regurgitation, and hypertension who was admitted with sigmoid phosphorus and is being evaluated for possible surgery. Her clinical rn manager is Dr. Lowery. Her most recent echocardiogram in 2014 showed moderate concentric left ventricular hypertrophy with mild left to go out for tract gradient, systolic anterior motion of the mitral valve leaflets, and moderate to severe mitral regurgitation. LV ejection fraction was 50%. She reports that she has been stable from a cardiac standpoint. No recent chest pain. No shortness of breath. Her activity level is limited. She is able to climb a flight of stairs with difficulty in walking around the house with difficulty. She underwent placement of a decompression tube today for the sigmoid volvulus. He is being evaluated for possible surgery. Allergies/Medications Allergies: Coded Allergies: NO KNOWN ALLERGIES (01/05/17) Home Med List: Amlodipine Besylate 5 MG TABLET 1 TAB PO DAILY HTN (Reported) Aspirin (Aspirin*) 81 MG TAB.CHEW 1 TAB PO DAILY HEART (Reported) Nebivolol HCl (Bystolic) 10 MG TABLET 1 TAB PO DAILY (Reported) Polyethylene Glycol 3350 17 GRAM/DOSE POWDER 17 GM PO DAILY PRN CONSTIPATION (Reported) Psyllium Hydrophy Sugar Free (Metamucil Fiber Singles Packet) 3.4 GRAM POWD.PACK 1 PAC PO DAILY PRN CONSTIPATION (Reported) Current Medications: Current Medications Sig/Felipe Start time Last Medication Dose Route Stop Time Status Admin Acetaminophen 1,000 MG Q6P PRN 01/05 1200 AC N/A 1 UNIT IV Acetaminophen 1,000 MG ONCE ONE 01/05 0515 DC 01/05 N/A 1 UNIT IV 01/05 0529 0511 Acetaminophen 0 .STK-MED ONE 01/05 0514 DC IV Amlodipine Besylate 5 MG DAILY 01/05 1000 AC 01/05 PO 1002 Dextrose/Sodium 1,000 ML Q13H 01/05 0600 AC 01/05 Chloride IV 0700 Heparin Sodium 0 .STK-MED ONE 01/05 0717 DC (Porcine) .ROUTE Heparin Sodium 5,000 UNIT Q8 01/05 0600 AC 01/05 (Porcine) SC 1542 Morphine Sulfate 2 MG Q3P PRN 01/05 0600 AC 01/05 IV 1003 Morphine Sulfate 0 .STK-MED ONE 01/05 0218 DC .ROUTE Morphine Sulfate 2 MG ONCE ONE 01/05 0215 DC 01/05 IV 01/05 0216 0214 Nebivolol 10 MG DAILY 01/05 1000 AC 01/05 PO 1001 Ondansetron HCl 4 MG Q6P PRN 01/05 0600 AC IV Ondansetron HCl 4 MG ONCE ONE 01/05 0230 DC 01/05 IV 01/05 0231 0217 Ondansetron HCl 0 .STK-MED ONE 01/05 0222 DC .ROUTE Pantoprazole Sodium 40 MG DAILY 01/05 1000 AC 01/05 IV 1002 Sodium Chloride 500 ML BOLUS ONE 01/05 0315 DC 01/05 IV 01/05 0414 0351 Review of Systems Review of Systems: No rash. No tremor. No melena. All other systems were reviewed, and were noted to be negative. Past History Travel History Traveled to [place] past 21 day No Medical History Blood Transfusion Hx: No Neurological: NONE EENT: hearing loss Cardiovascular: cardiomyopathy, hypertension, hyperlipidemia, mitral regurgitation, LBBB Respiratory: NONE Gastrointestinal: NONE Hepatic: NONE Renal: NONE Musculoskeletal: arthritis Psychiatric: NONE Endocrine: NONE Blood Disorders: NONE Cancer(s): NONE SEASONAL [place] BUNDLER/Reproductive: NONE Surgical History Surgical History: cholecystectomy, RECTAL TEAR tonsillectomy Family History Relations & Conditions If Any: MOTHER Hypertension Psychosocial History Where Do You Live? Home Who Do You Live With? 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 Exam & Diagnostic Data Vital Signs and I&O Vital Signs Date Time Temp Pulse Resp B/P B/P Pulse O2 O2 Flow FiO2 Mean Ox Delivery Rate 01/05 1342 98.1 73 18 118/70 95 Room Air 01/05 1002 80 130/80 01/05 1001 80 130/80 01/05 0800 98.1 80 18 130/80 97 Room Air 01/05 0717 97.9 82 18 138/80 97 Room Air 01/05 0511 98.3 83 18 142/74 97 Room Air 01/05 0145 97.6 85 18 145/70 96 Room Air Intake & Output 01/05 1600 01/05 0800 01/05 0000 01/04 1600 01/04 0801/04 0000 Intake Total 300 1000 Output Total 600 Balance -300 1000 Intake, IV 300 1000 Intake, Oral 0 Output, Urine 600 Patient 150 lb Weight Weight Reported by Patient Measurement Method Physical Exam: Gen: The patient is in no acute distress HEENT: Normal nose, ears, and oropharynx. Pupils equal bilaterally. Conjunctiva normal. Neck: Supple with no JVD, no masses, and no thyromegaly Lungs: Clear to auscultation with normal respiratory effort Heart: RRR, S1, S2, 3/6 systolic murmur. No peripheral edema, 2+ pulses in the lower extremities bilaterally Abdomen: Soft, nontender, no masses. No hepatomegaly. No splenomegaly Extremities: No clubbing or cyanosis. Normal muscle strength in the upper and lower extremities Skin: Normal skin turgor with no skin ulcers or lesions noted. Neuro: Cranial nerves intact. Sensation intact Psych: Alert and oriented 3 with appropriate affect Labs/Brady Results: Laboratory Tests 01/05 01/05 0443 0340 Chemistry Lactic Acid (0.7 - 2.1 mmol/L) 0.8 Urines Urinalysis LIGHT H Urine Color (YEL,AMB,STR) YEL Urine Clarity (CLEAR) CLEAR Urine pH (5.0 - 8.0) 6.0 Ur Specific [place] (1.001 - 1.035) 1.025 Urine Protein (NEG,<30 MG/DL) 30 H Urine Ketones (NEG) NEG Urine Nitrite (NEG) NEG Urine Bilirubin (NEG) NEG Urine Urobilinogen (0.1 - 1.0 EU/dl) 0.2 Ur Leukocyte Esterase (NEG) NEG Ur Microscopic SEDIMENT EXAMINED Urine RBC (0 - 5 /HPF) 1-3 Urine WBC (0 - 2 /HPF) 1-3 H Ur Epithelial Cells (NONE,FEW) FEW Urine Bacteria (NEG/NONE) RARE H Urine Mucus (FEW,NONE) FEW Urine Hemoglobin (NEG) MOD H Urine Glucose (N MG/DL) NEG 01/05 0205 Chemistry Sodium (137 - 145 mmol/L) 133 L Potassium (3.5 - 5.1 mmol/L) 4.1 Chloride (98 - 107 mmol/L) 100 Carbon Dioxide (22 - 30 mmol/L) 23 Anion Gap (5 - 16) 9 BUN (7 - 17 mg/dL) 19 H Creatinine (0.5 - 1.0 mg/dL) 1.1 H Estimated GFR (>60 ml/min) 47 L BUN/Creatinine Ratio (7 - 25 %) 17.3 Glucose (65 - 99 mg/dL) 145 H Lactic Acid (0.7 - 2.1 mmol/L) 0.9 Calcium (8.4 - 10.2 mg/dL) 9.1 Total Bilirubin (0.2 - 1.3 mg/dL) 0.4 AST (14 - 36 U/L) 24 ALT (9 - 52 U/L) 28 Alkaline Phosphatase (<127 U/L) 60 Total Protein (6.3 - 8.2 g/dL) 6.7 Albumin (3.5 - 5.0 g/dL) 4.1 Globulin (1.9 - 4.2 gm/dL) 2.6 Albumin/Globulin Ratio (1.1 - 2.2 %) 1.6 Hematology CBC w Diff NO MAN DIFF REQ WBC (4.8 - 10.8 /CUMM) 11.5 H RBC (4.20 - 5.40 /CUMM) 4.24 Hgb (12.0 - 16.0 G/DL) 12.8 Hct (37 - 47 %) 38.0 MCV (81.0 - 99.0 FL) 89.5 MCH (27.0 - 31.0 PG) 30.3 RDW (11.5 - 14.5 %) 14.5 Plt Count (130 - 400 /CUMM) 264 MPV (7.4 - 10.4 FL) 8.3 Gran % (42.2 - 75.2 %) 81.7 H Lymphocytes % (20.5 - 51.1 %) 8.7 L Monocytes % (1.7 - 9.3 %) 7.8 Eosinophils % (0 - 5 %) 1.5 Basophils % (0.0 - 2.0 %) 0.3 Absolute Granulocytes (1.4 - 6.5 /CUMM) 9.4 H Absolute Lymphocytes (1.2 - 3.4 /CUMM) 1.0 L Absolute Monocytes (0.10 - 0.60 /CUMM) 0.9 H Absolute Eosinophils (0.0 - 0.7 /CUMM) 0.2 Absolute Basophils (0.0 - 0.2 /CUMM) 0 PUBS MCHC (33.0 - 37.0 G/DL) 33.8 Diagnostic Data EKG Results EKG: none available in chart Other Results CT scan of the abdomen and pelvis: 1. Sigmoid volvulus with no evidence of possible ischemia by the presence of fluid in the peritoneal cavity. Edema and fluid around the distal rectum sigmoid in the pelvis as well. 2. Marked diverticulosis of colon without diverticulitis. 3. Fluid in the endometrial cavity. In a patient of this age further assessment should be considered. Echocardiogram 04/08/15: Normal LV size. Moderate concentric LVH. Septal wall to synchrony and mild hypokinesis. Mildly sigmoid septum. Mild left ventricular outflow tract gradient with systolic anterior motion of the mitral valve leaflets. Mild aortic regurgitation. Mild to moderate mitral regurgitation. Small echodensity note located on the anterior mitral leaflet. Assessment/Plan Assessment/Plan Assessment: 1. Moderate hypertrophic cardiomyopathy 2 Moderate to severe mitral regurgitation 3. Preoperative for possible surgical repair of sigmoid volvulus 4. Limited functional status, able to climb stairs with difficulty. 5. No recent cardiac symptoms. Most recent echocardiogram was in 2014. Medications: * EKG * Echocardiogram * Continue amlodipine and nebivolol * Final preoperative clearance once above testing is completed. If emergent surgery is needed then this should proceed without further evaluation. Consult Acknowledgment - Thank you for your consult request.
[2017-01-05 22:30] VITALS: BP 116/60
[2017-01-06 06:14] VITALS: BP 118/60
--- NOTE | 2017-01-06 07:22 | PN- General Surgery ---
Subjective Subjective: FEELING BETTER, NO N/V. TAKING SIPS OF LIQUIDS. RECTAL TUBE IN PLACE WITH MUCOUS DRAINAGE & LITTLE GAS. NO ABD PAIN, NO PAIN MEDS. NO OOB Objective Vital Signs and I&Os Vital Signs Date Time Temp Pulse Resp B/P B/P Pulse O2 O2 Flow FiO2 Mean Ox Delivery Rate 01/06 614 98.4 67 20 118/60 96 Room Air 01/05 2230 98.0 72 20 116/60 94 01/05 1342 98.1 73 18 118/70 95 Room Air 01/05 1002 80 130/80 01/05 1001 80 130/80 01/05 0800 98.1 80 18 130/80 97 Room Air Intake & Output 01/06 0801/06 0000 01/05 1600 01/05 0800 01/05 0000 01/04 1600 Intake Total 071 370 0146 Output Total 600 Balance 600 -300 1000 Intake, IV 554 369 9842 Intake, Oral 0 Output, Urine 600 Patient 150 lb Weight Weight Reported by Patient Measurement Method Physical Exam: GEN:NAD CARD: S1S2 RRR +MURMUR PULM: CTAB ABD: SOFT, NT, ND, +BS THROUGHOUT EXT: CALVES SOFT NT, ALPS ON BL Results Recent Imaging Studies: AXR: PDG Assessment/Plan Assessment/Plan A: POD1 SP CSCOPE DECOMPRESSION SIGMOID VOLVULUS, IMPROVED. P: try clears for bfast- advance & HL if tolerates rectal tube in place- ?when to remove OOB, PT, uses cane at baseline and no OOB inpt yet AXR pdg this am will dw attending Core Measures/Miscellaneous Venous Thromboembolism VTE Risk Factors: Age > 40 VTE Contraindications: No Contraindications VTE Diagnosis: No VTE Type: NONE VTE Confirmed by (Test): NONE Beta Kwabena Is Beta Kwabena a Home Med? Yes Antibiotics Is Patient on Antibiotics? No
--- NOTE | 2017-01-06 09:14 | NUR ---
PATIENT WITH RECTAL TUBE FOR DECOMPRESSION, TO GRAVITY, RECTAL TUBE IN PLACE ATTACHED TO DRAINAGE BAG, DRAINING CLEAR YELLOW FLUID INTO BAG, NO DISCOMFORT NOTED, NEEDS IN REACH, SAFETY MAINTAINED.
--- NOTE | 2017-01-06 09:17 | PN- Att Addend ---
Attending Addendum Attending Brief Note Patient reports complete resolution of pain. She has no appetite otherwise she is tolerating oral liquids. General Appearance: Alert, No Acute Distress Skin: Grossly normal HEENT: PEERLA Neck: Supple, No JVD Cardiovascular: Systolic Murmurs Lungs: Clear to Auscultation, Normal Air Movement Abdomen: Sluggish bowel sounds Assessment 86-year-old with significant cardiac history having sigmoid volvulus status post reduction of sigmoid volvulus by colonoscopy. Patient this morning is pain-free and tolerating liquid diet. She continues to have a rectal tube in her bowel sounds are still sluggish. At this point she is on observation with gradual advancement of diet. Plan Advance diet as tolerated Rectal tube management per surgery May DC IV fluids if patient is hydrating orally Consider discontinuing morphine Continue other home medications DVT prophylaxis Ambulate patient Current Medications Sig/Felipe Start time Last Medication Dose Route Stop Time Status Admin Acetaminophen 1,000 MG Q6P PRN / 1200 AC N/A 1 UNIT IV Amlodipine Besylate 5 MG DAILY 01/05 1000 AC 07/ PO 1002 Dextrose/Sodium 1,000 ML Q13H 01/05 0600 AC / Chloride IV 2025 Heparin Sodium 5,000 UNIT Q8 / 0600 AC 01/06 (Porcine) SC 0513 Morphine Sulfate 2 MG Q3P PRN 01/05 0600 AC 07/ IV 1003 Nebivolol 10 MG DAILY 01/05 1000 AC 07/ PO 1001 Ondansetron HCl 4 MG Q6P PRN / 0600 AC IV Pantoprazole Sodium 40 MG DAILY 01/05 1000 AC / IV 1002 Vital Signs Date Time Temp Pulse Resp B/P B/P Pulse O2 O2 Flow FiO2 Mean Ox Delivery Rate 01/06 0614 98.4 67 20 118/60 96 Room Air 07/ 2230 98.0 72 20 116/60 94 07/04 1342 98.1 73 18 118/70 95 Room Air 07/04 1002 80 130/80 07/ 1001 80 130/80
--- NOTE | 2017-01-06 12:15 | RADIOLOGY REPORT ---
EXAMINATION: XR ABDOMEN MULTIPLE VIEWS CLINICAL INDICATION: Follow-up sigmoid volvulus. Decompression. COMPARISON: CT images of abdomen pelvis, and KUB,, 01/05/2017. TECHNIQUE: Abdomen, 2 views FINDINGS: Mild atelectasis in right lung base. Possible trace right pleural effusion. Cholecystectomy clips in the right upper quadrant the abdomen. [id number] amount of stool is present in the colon and there is gaseous distention of bowel. However, no evidence of recurrent distention of the sigmoid colon. No evidence of bowel obstruction or pneumoperitoneum. The tip of the rectal tube has been repositioned; it now projects over the midline of the pelvis and is likely in the distal sigmoid. IMPRESSION: 1. No radiographic evidence of recurrent sigmoid volvulus. 2. The tip of the rectal tube has been repositioned and is now located in the expected region of the distal sigmoid colon.
--- NOTE | 2017-01-06 13:55 | NUR ---
RECTAL TUBE REMOVED PER SURGICAL PA, PT TOLERATED OK. WILL MONITOR.
--- NOTE | 2017-01-06 14:24 | Patient Discharge Instructions ---
Discharge Instructions General Discharge Information You were seen/treated for: SIGMOID VOLVULUS You had these procedures: COLONOSCOPY Watch for these problems: worsening abdominal pain, bloating, nausea, vomiting, inability to tolerated food/drink, abscence of bm or flatuance Diet Continue normal diet: Yes Activity Full Activity/No Limits: Yes (activity as tolerated) Acute Coronary Syndrome Inclusion Criteria At DC or during hospital stay patient has or had the following: ACS DIAGNOSIS No Discharge Core Measures Meds if any: Prescribed or Continued at Discharge Meds if any: NOT Prescribed or Continued at Discharge Congestive Heart Failure Inclusion Criteria At DC or during hospital stay patient has or had the following: CHF DIAGNOSIS No Discharge Core Measures Meds if any: Prescribed or Continued at Discharge Meds if any: NOT Prescribed or Continued at Discharge Cerebrovascular accident Inclusion Criteria At DC or during hospital stay patient has or had the following: CVA/TIA Diagnosis No Discharge Core Measures Meds if any: Prescribed or Continued at Discharge Meds if any: NOT Prescribed or Continued at Discharge Venous thromboembolism Inclusion Criteria VTE Diagnosis No VTE Type NONE VTE Confirmed by (Test) NONE Discharge Core Measures - Per Current guidelines, there needs to be overlap - treatment for the first 5 days of Warfarin therapy. - If discharged on Warfarin prior to 5 days of - overlap therapy, the patient will need to be - assessed for post discharge needs including - *Post discharge parental anticoagulation - *Warfarin and/or parental anticoagulation education - *Follow up date to check INR post discharge At least 5 days overlap therapy as Inpatient No Meds if any: Prescribed or Continued at Discharge Note: Overlap Therapy is Warfarin and Anticoagulant Meds if any: NOT Prescribed or Continued at Discharge
[2017-01-06 15:06] VITALS: BP 118/70
--- NOTE | 2017-01-06 18:27 | PN- General Surgery ---
Subjective Subjective: Follow-up for sigmoid volvulus reduced endoscopically yesterday Patient denies any complaints no abdominal pain she admits that she had abdominal pain when she came to the hospital she doesn't recall any bowel movements or passing gas today no nausea she is hungry. Objective Vital Signs and I&Os I reviewed Vital Signs Date Time Temp Pulse Resp B/P B/P Pulse O2 O2 Flow FiO2 Mean Ox Delivery Rate 01/06 1506 98.9 58 16 118/70 96 01/06 925 66 110/70 01/06 0925 66 110/70 01/06 0614 98.4 67 20 118/60 96 Room Air 01/05 2230 98.0 72 20 116/60 94 I reviewed Intake & Output 01/06 1600 01/06 0801/06 0000 01/05 1600 01/05 0801/05 0000 Intake Total 900 398 805 1230 Output Total 450 600 Balance 450 600 -300 1000 Intake, IV 300 421 905 2107 Intake, Oral 600 0 Output, Stool 200 Output, Urine 250 600 Patient 150 lb Weight Weight Reported by Patient Measurement Method Physical Exam: Constitutional: no acute distress no pain Eyes: sclera anicteric ENMT: moist mucous membranes Cardiovascular: S1-S2 no murmurs no peripheral edema Respiratory: clear to auscultation with normal respiratory effort and no intercostal retractions GI: abdomen soft nontender upper abdomen feels distended similar to yesterday Extremities / lymphatics: free range of motion no peripheral edema Skin: no jaundice no rashes warm, nondiaphoretic Psychiatric: mood and affect are appropriate and alert and oriented to person place and time Current Medications: I reviewed Current Medications Sig/Eflipe Start time Last Medication Dose Route Stop Time Status Admin Acetaminophen 1,000 MG Q6P PRN 01/05 1200 AC N/A 1 UNIT IV Amlodipine Besylate 5 MG DAILY 01/05 1000 AC 01/06 PO 0925 Chlorhexidine 1 GM .STK-MED ONE 01/06 1125 DC Gluconate TOP 01/06 1126 Dextrose/Sodium 1,000 ML Q13H 01/05 0600 DC 01/06 Chloride IV 09 Heparin Sodium 5,000 UNIT Q8 01/05 0600 AC 01/06 (Porcine) SC 1248 Morphine Sulfate 2 MG Q3P PRN 01/05 0600 AC 01/05 IV 1003 Nebivolol 10 MG DAILY 01/05 1000 AC 01/06 PO 0925 Ondansetron HCl 4 MG Q6P PRN 01/05 0600 AC IV Pantoprazole Sodium 40 MG DAILY 01/05 1000 AC 01/06 IV 0926 Polyethylene Glycol 17 GM DAILY 01/06 1415 AC 01/06 PO 1555 Results Last 48 Hours of Labs: I reviewed Laboratory Tests 01/05 01/05 0443 0340 Chemistry Lactic Acid (0.7 - 2.1 mmol/L) 0.8 Urines Urinalysis LIGHT H Urine Color (YEL,AMB,STR) YEL Urine Clarity (CLEAR) CLEAR Urine pH (5.0 - 8.0) 6.0 Ur Specific [place] (1.001 - 1.035) 1.025 Urine Protein (NEG,<30 MG/DL) 30 H Urine Ketones (NEG) NEG Urine Nitrite (NEG) NEG Urine Bilirubin (NEG) NEG Urine Urobilinogen (0.1 - 1.0 EU/dl) 0.2 Ur Leukocyte Esterase (NEG) NEG Ur Microscopic SEDIMENT EXAMINED Urine RBC (0 - 5 /HPF) 1-3 Urine WBC (0 - 2 /HPF) 1-3 H Ur Epithelial Cells (NONE,FEW) FEW Urine Bacteria (NEG/NONE) RARE H Urine Mucus (FEW,NONE) FEW Urine Hemoglobin (NEG) MOD H Urine Glucose (N MG/DL) NEG 01/05 0205 Chemistry Sodium (137 - 145 mmol/L) 133 L Potassium (3.5 - 5.1 mmol/L) 4.1 Chloride (98 - 107 mmol/L) 100 Carbon Dioxide (22 - 30 mmol/L) 23 Anion Gap (5 - 16) 9 BUN (7 - 17 mg/dL) 19 H Creatinine (0.5 - 1.0 mg/dL) 1.1 H Estimated GFR (>60 ml/min) 47 L BUN/Creatinine Ratio (7 - 25 %) 17.3 Glucose (65 - 99 mg/dL) 145 H Lactic Acid (0.7 - 2.1 mmol/L) 0.9 Calcium (8.4 - 10.2 mg/dL) 9.1 Total Bilirubin (0.2 - 1.3 mg/dL) 0.4 AST (14 - 36 U/L) 24 ALT (9 - 52 U/L) 28 Alkaline Phosphatase (<127 U/L) 60 Total Protein (6.3 - 8.2 g/dL) 6.7 Albumin (3.5 - 5.0 g/dL) 4.1 Globulin (1.9 - 4.2 gm/dL) 2.6 Albumin/Globulin Ratio (1.1 - 2.2 %) 1.6 Hematology CBC w Diff NO MAN DIFF REQ WBC (4.8 - 10.8 /CUMM) 11.5 H RBC (4.20 - 5.40 /CUMM) 4.24 Hgb (12.0 - 16.0 G/DL) 12.8 Hct (37 - 47 %) 38.0 MCV (81.0 - 99.0 FL) 89.5 MCH (27.0 - 31.0 PG) 30.3 RDW (11.5 - 14.5 %) 14.5 Plt Count (130 - 400 /CUMM) 264 MPV (7.4 - 10.4 FL) 8.3 Gran % (42.2 - 75.2 %) 81.7 H Lymphocytes % (20.5 - 51.1 %) 8.7 L Monocytes % (1.7 - 9.3 %) 7.8 Eosinophils % (0 - 5 %) 1.5 Basophils % (0.0 - 2.0 %) 0.3 Absolute Granulocytes (1.4 - 6.5 /CUMM) 9.4 H Absolute Lymphocytes (1.2 - 3.4 /CUMM) 1.0 L Absolute Monocytes (0.10 - 0.60 /CUMM) 0.9 H Absolute Eosinophils (0.0 - 0.7 /CUMM) 0.2 Absolute Basophils (0.0 - 0.2 /CUMM) 0 PUBS MCHC (33.0 - 37.0 G/DL) 33.8 Assessment/Plan Assessment/Plan I reviewed today's multiview on PACS myself it similar to yesterday's except the rectal tube has moved down into the pelvis that large dilated sigmoid loop is not there as seen on the CT Impression is endoscopically detorsed sigmoid volvulus, cardiology evaluation underway, no peritoneal signs on clear liquid diet, prefer not to operate because of her risks, but if need to because of the high likelihood of recurrence, prefer that she be prepped first, to avoid the complexity of a Woodard's, continue present care for the time being await return of bowel function i.e. bowel movements. Problem List: 1. Volvulus of sigmoid colon 2. Heart disease Core Measures/Miscellaneous Venous Thromboembolism VTE Risk Factors: Age > 40 VTE Contraindications: No Contraindications VTE Diagnosis: No VTE Type: NONE VTE Confirmed by (Test): NONE Beta Kwabena Is Beta Kwabena a Home Med? Yes Antibiotics Is Patient on Antibiotics? No
[2017-01-06 22:32] VITALS: BP 130/88
[2017-01-07 06:49] VITALS: BP 136/80
--- NOTE | 2017-01-07 08:17 | PN- Gastroenterology ---
Assessment/Plan Assessment/Recommendations: Sigmoid volvulus in a patient with chronic constipation and a described redundant colon. No clinical recurrence post colonoscopic therapy/ decompression. Recommendations * Regular diet * Daily MiraLAX * Follow-up with me in office in 3-4 weeks Thank you very much for allowing my participation in this patient's care. Please call or reconsult during this hospitalization as needed. Subjective Subjective: Rectal tube removed. No abdominal pain or distention. Tolerating diet. Had a bowel movement, loose. Objective Vital Signs and I&Os Vital Signs Date Time Temp Pulse Resp B/P B/P Pulse O2 O2 Flow FiO2 Mean Ox Delivery Rate 01/07 0649 98.8 73 18 136/80 96 Room Air 01/06 2232 97.4 75 20 130/88 97 Room Air 01/06 1506 98.9 58 16 118/70 96 01/06 0925 66 110/70 01/06 0925 66 110/70 Intake & Output 01/07 1600 01/07 0400 01/06 1600 01/06 0400 01/05 1600 01/05 0400 Intake Total 813 453 1917 Output Total 450 600 Balance 450 600 700 Intake, IV 187 912 0302 Intake, Oral 600 0 Output, Stool 200 Output, Urine 250 600 Patient 150 lb 150 lb Weight Weight Reported by Patient Reported by Patient Measurement Method Physical Exam: Abdomen is soft and mildly distended. Bowel sounds present. No tenderness. Current Medications: Current Medications Sig/Felipe Start time Last Medication Dose Route Stop Time Status Admin Acetaminophen 1,000 MG Q6P PRN 01/05 1200 AC N/A 1 UNIT IV Amlodipine Besylate 5 MG DAILY 01/05 1000 AC 01/06 PO 0925 Chlorhexidine 1 GM .STK-MED ONE 01/06 1125 DC Gluconate TOP 01/06 1126 Dextrose/Sodium 1,000 ML Q13H 01/05 0600 DC 01/06 Chloride IV 0926 Heparin Sodium 5,000 UNIT Q8 01/05 0600 AC 01/07 (Porcine) SC 0604 Morphine Sulfate 2 MG Q3P PRN 01/05 0600 AC 01/05 IV 1003 Nebivolol 10 MG DAILY 01/05 1000 AC 01/06 PO 0925 Ondansetron HCl 4 MG Q6P PRN 01/05 0600 AC IV Pantoprazole Sodium 40 MG DAILY 01/05 1000 AC 01/06 IV 0926 Polyethylene Glycol 17 GM DAILY 01/06 1415 AC 07/05 PO 1555 Results Pertinent Lab Results: Laboratory Tests 01/07 01/05 01/05 0630 0443 0340 Chemistry Sodium Pending Potassium Pending Chloride Pending Carbon Dioxide Pending Anion Gap Pending BUN Pending Creatinine Pending BUN/Creatinine Ratio Pending Lactic Acid (0.7 - 2.1 mmol/L) 0.8 Hematology CBC w Diff Pending WBC Pending RBC Pending Hgb Pending Hct Pending MCV Pending MCH Pending RDW Pending Plt Count Pending MPV Pending PUBS MCHC Pending Urines Urinalysis LIGHT H Urine Color (YEL,AMB,STR) YEL Urine Clarity (CLEAR) CLEAR Urine pH (5.0 - 8.0) 6.0 Ur Specific [place] (1.001 - 1.035) 1.025 Urine Protein (NEG,<30 MG/DL) 30 H Urine Ketones (NEG) NEG Urine Nitrite (NEG) NEG Urine Bilirubin (NEG) NEG Urine Urobilinogen (0.1 - 1.0 EU/dl) 0.2 Ur Leukocyte Esterase (NEG) NEG Ur Microscopic SEDIMENT EXAMINED Urine RBC (0 - 5 /HPF) 1-3 Urine WBC (0 - 2 /HPF) 1-3 H Ur Epithelial Cells (NONE,FEW) FEW Urine Bacteria (NEG/NONE) RARE H Urine Mucus (FEW,NONE) FEW Urine Hemoglobin (NEG) MOD H Urine Glucose (N MG/DL) NEG 01/05 0205 Chemistry Sodium (137 - 145 mmol/L) 133 L Potassium (3.5 - 5.1 mmol/L) 4.1 Chloride (98 - 107 mmol/L) 100 Carbon Dioxide (22 - 30 mmol/L) 23 Anion Gap (5 - 16) 9 BUN (7 - 17 mg/dL) 19 H Creatinine (0.5 - 1.0 mg/dL) 1.1 H Estimated GFR (>60 ml/min) 47 L BUN/Creatinine Ratio (7 - 25 %) 17.3 Glucose (65 - 99 mg/dL) 145 H Lactic Acid (0.7 - 2.1 mmol/L) 0.9 Calcium (8.4 - 10.2 mg/dL) 9.1 Total Bilirubin (0.2 - 1.3 mg/dL) 0.4 AST (14 - 36 U/L) 24 ALT (9 - 52 U/L) 28 Alkaline Phosphatase (<127 U/L) 60 Total Protein (6.3 - 8.2 g/dL) 6.7 Albumin (3.5 - 5.0 g/dL) 4.1 Globulin (1.9 - 4.2 gm/dL) 2.6 Albumin/Globulin Ratio (1.1 - 2.2 %) 1.6 Hematology CBC w Diff NO MAN DIFF REQ WBC (4.8 - 10.8 /CUMM) 11.5 H RBC (4.20 - 5.40 /CUMM) 4.24 Hgb (12.0 - 16.0 G/DL) 12.8 Hct (37 - 47 %) 38.0 MCV (81.0 - 99.0 FL) 89.5 MCH (27.0 - 31.0 PG) 30.3 RDW (11.5 - 14.5 %) 14.5 Plt Count (130 - 400 /CUMM) 264 MPV (7.4 - 10.4 FL) 8.3 Gran % (42.2 - 75.2 %) 81.7 H Lymphocytes % (20.5 - 51.1 %) 8.7 L Monocytes % (1.7 - 9.3 %) 7.8 Eosinophils % (0 - 5 %) 1.5 Basophils % (0.0 - 2.0 %) 0.3 Absolute Granulocytes (1.4 - 6.5 /CUMM) 9.4 H Absolute Lymphocytes (1.2 - 3.4 /CUMM) 1.0 L Absolute Monocytes (0.10 - 0.60 /CUMM) 0.9 H Absolute Eosinophils (0.0 - 0.7 /CUMM) 0.2 Absolute Basophils (0.0 - 0.2 /CUMM) 0 PUBS MCHC (33.0 - 37.0 G/DL) 33.8 Imaging/Other Studies: Abdominal x-ray yesterday without recurrence of volvulus.
[2017-01-07 08:22] LABS: ABSOLUTE BASOPHIL COUNT 0.1 /CUMM (0.0-0.2); ABSOLUTE EOSINOPHIL COUNT 0.2 /CUMM (0.0-0.7); ABSOLUTE GRANULOCYTE CT 5.1 /CUMM (1.4-6.5); ABSOLUTE LYMPH COUNT 1.3 /CUMM (1.2-3.4); ABSOLUTE MONOCYTE COUNT 0.6 /CUMM (0.10-0.60); BASOPHIL % 0.9 % (0.0-2.0); EOSINOPHIL % 3.3 % (0-5); GRANULOCYTE % 69.3 % (42.2-75.2); HEMATOCRIT 36.4 % (37-47); MEAN CORPUSCULAR HGB 30.1 PG (27.0-31.0); MEAN CORPUSCULAR HGB CONC 33.3 G/DL (33.0-37.0); MEAN CORPUSCULAR VOLUME 90.4 FL (81.0-99.0); MEAN PLATELET VOLUME 9.2 FL (7.4-10.4); PLATELET COUNT 232 /CUMM (130-400); RBC DISTRIBUTION WIDTH 14.7 % (11.5-14.5); RED BLOOD CELL CT 4.03 /CUMM (4.20-5.40); WHITE BLOOD CELL COUNT 7.4 /CUMM (4.8-10.8)
--- NOTE | 2017-01-07 09:11 | PN- General Surgery ---
See Addendum Subjective Subjective: no complaints patient had a bowel movement yesterday evening and several loose stools. She is passing gas. The rep has been removed. No pain no nv. Objective Vital Signs and I&Os Vital Signs Date Time Temp Pulse Resp B/P B/P Pulse O2 O2 Flow FiO2 Mean Ox Delivery Rate 01/08 912 72 138/82 01/07 0911 78 138/82 01/07 0649 98.8 73 18 136/80 96 Room Air 01/06 2232 97.4 75 20 130/88 97 Room Air 01/06 1506 98.9 58 16 118/70 96 01/06 0925 66 110/70 01/06 0925 66 110/70 Intake & Output 01/07 0801/07 0000 01/06 0801/06 0000 Intake Total 900 600 Output Total 450 Balance 450 600 Intake, IV 300 600 Intake, Oral 600 Output, Stool 200 Output, Urine 250 Patient 150 lb Weight Physical Exam: Well-developed well-nourished no apparent distress. HEENT: Atraumatic, extraocular motion intact Neck: Supple, no lymphadenopathy Respiratory: No respiratory distress Heart: Regular rate and rhythm, positive systolic murmur Abdomen: Soft, nontender. Minimally distended, active bowel sounds Extremities: No edema, no calf pain Neuro: Alert and oriented x3 Psych: Mood affect normal, normal memory normal judgment. Skin: Warm and dry, no rash on exposed skin Results Last 48 Hours of Labs: Laboratory Tests 01/07 0630 Chemistry Sodium (137 - 145 mmol/L) 137 Potassium (3.5 - 5.1 mmol/L) 3.5 Chloride (98 - 107 mmol/L) 103 Carbon Dioxide (22 - 30 mmol/L) 27 Anion Gap (5 - 16) 8 BUN (7 - 17 mg/dL) 10 Creatinine (0.5 - 1.0 mg/dL) 0.9 Estimated GFR (>60 ml/min) 59 L BUN/Creatinine Ratio (7 - 25 %) 11.1 Hematology CBC w Diff NO MAN DIFF REQ WBC (4.8 - 10.8 /CUMM) 7.4 RBC (4.20 - 5.40 /CUMM) 4.03 L Hgb (12.0 - 16.0 G/DL) 12.1 Hct (37 - 47 %) 36.4 L MCV (81.0 - 99.0 FL) 90.4 MCH (27.0 - 31.0 PG) 30.1 RDW (11.5 - 14.5 %) 14.7 H Plt Count (130 - 400 /CUMM) 232 MPV (7.4 - 10.4 FL) 9.2 Gran % (42.2 - 75.2 %) 69.3 Lymphocytes % (20.5 - 51.1 %) 17.7 L Monocytes % (1.7 - 9.3 %) 8.8 Eosinophils % (0 - 5 %) 3.3 Basophils % (0.0 - 2.0 %) 0.9 Absolute Granulocytes (1.4 - 6.5 /CUMM) 5.1 Absolute Lymphocytes (1.2 - 3.4 /CUMM) 1.3 Absolute Monocytes (0.10 - 0.60 /CUMM) 0.6 Absolute Eosinophils (0.0 - 0.7 /CUMM) 0.2 Absolute Basophils (0.0 - 0.2 /CUMM) 0.1 PUBS MCHC (33.0 - 37.0 G/DL) 33.3 Assessment/Plan Assessment/Plan Sigmoid volvulus appears to be resolved Appreciate GI input, follow-up in 3 or 4 weeks as outpatient We will discuss with attending, advancing diet for lunch and possible discharge later today or tomorrow Core Measures/Miscellaneous Venous Thromboembolism VTE Risk Factors: Age > 40 VTE Contraindications: No Contraindications VTE Diagnosis: No VTE Type: NONE VTE Confirmed by (Test): NONE Beta Kwabena Is Beta Kwabena a Home Med? Yes Antibiotics Is Patient on Antibiotics? No
--- NOTE | 2017-01-07 09:21 | PN- Att Addend ---
Attending Addendum Attending Brief Note Patient reports complete resolution of pain. She has no appetite otherwise she is tolerating oral liquids. General Appearance: Alert, No Acute Distress Skin: Grossly normal HEENT: PEERLA Neck: Supple, No JVD Cardiovascular: Systolic Murmurs Lungs: Clear to Auscultation, Normal Air Movement Abdomen: Sluggish bowel sounds Assessment 86-year-old with significant cardiac history having sigmoid volvulus status post reduction of sigmoid volvulus by colonoscopy. Patient this morning is pain-free and tolerating liquid diet. She had bowel movements. We will advance diet to regular and plan to discharge later today. Plan Advanced to regular diet Consider discontinuing morphine Continue other home medications upon discharge Current Medications Sig/Felipe Start time Last Medication Dose Route Stop Time Status Admin Acetaminophen 1,000 MG Q6P PRN 01/05 1200 AC N/A 1 UNIT IV Amlodipine Besylate 5 MG DAILY 01/05 1000 AC 01/07 PO 0912 Chlorhexidine 1 GM .STK-MED ONE 01/06 1125 DC Gluconate TOP 01/06 1126 Dextrose/Sodium 1,000 ML Q13H 01/05 0600 DC 01/06 Chloride IV 0926 Heparin Sodium 5,000 UNIT Q8 01/05 0600 AC 01/07 (Porcine) SC 0604 Morphine Sulfate 2 MG Q3P PRN 01/05 0600 AC 01/05 IV 1003 Nebivolol 10 MG DAILY 01/05 1000 AC 01/07 PO 0911 Ondansetron HCl 4 MG Q6P PRN / 0600 AC IV Pantoprazole Sodium 40 MG DAILY 01/05 1000 AC 01/07 IV 0912 Polyethylene Glycol 17 GM DAILY 01/06 1415 AC 01/07 PO 0911 Laboratory Tests 01/07 0630 Chemistry Sodium (137 - 145 mmol/L) 137 Potassium (3.5 - 5.1 mmol/L) 3.5 Chloride (98 - 107 mmol/L) 103 Carbon Dioxide (22 - 30 mmol/L) 27 Anion Gap (5 - 16) 8 BUN (7 - 17 mg/dL) 10 Creatinine (0.5 - 1.0 mg/dL) 0.9 Estimated GFR (>60 ml/min) 59 L BUN/Creatinine Ratio (7 - 25 %) 11.1 Hematology CBC w Diff NO MAN DIFF REQ WBC (4.8 - 10.8 /CUMM) 7.4 RBC (4.20 - 5.40 /CUMM) 4.03 L Hgb (12.0 - 16.0 G/DL) 12.1 Hct (37 - 47 %) 36.4 L MCV (81.0 - 99.0 FL) 90.4 MCH (27.0 - 31.0 PG) 30.1 RDW (11.5 - 14.5 %) 14.7 H Plt Count (130 - 400 /CUMM) 232 MPV (7.4 - 10.4 FL) 9.2 Gran % (42.2 - 75.2 %) 69.3 Lymphocytes % (20.5 - 51.1 %) 17.7 L Monocytes % (1.7 - 9.3 %) 8.8 Eosinophils % (0 - 5 %) 3.3 Basophils % (0.0 - 2.0 %) 0.9 Absolute Granulocytes (1.4 - 6.5 /CUMM) 5.1 Absolute Lymphocytes (1.2 - 3.4 /CUMM) 1.3 Absolute Monocytes (0.10 - 0.60 /CUMM) 0.6 Absolute Eosinophils (0.0 - 0.7 /CUMM) 0.2 Absolute Basophils (0.0 - 0.2 /CUMM) 0.1 PUBS MCHC (33.0 - 37.0 G/DL) 33.3 Vital Signs Date Time Temp Pulse Resp B/P B/P Pulse O2 O2 Flow FiO2 Mean Ox Delivery Rate 01/08 912 72 138/82 07/ 0911 78 138/82 / 0649 98.8 73 18 136/80 96 Room Air 07/05 2232 97.4 75 20 130/88 97 Room Air 07/05 1506 98.9 58 16 118/70 96 07/05 0925 66 110/70 07/05 0925 66 110/70
--- NOTE | 2017-01-07 09:31 | PN- Cardiology ---
Subjective Subjective: Patient comfortable. Sitting out in a chair. Offers no complaints. Anticipated discharge today. Objective Vital Signs and I&Os Vital Signs Date Time Temp Pulse Resp B/P B/P Pulse O2 O2 Flow FiO2 Mean Ox Delivery Rate 01/07 0912 72 138/82 01/07 0911 78 138/82 01/07 0649 98.8 73 18 136/80 96 Room Air 01/06 2232 97.4 75 20 130/88 97 Room Air 01/06 1506 98.9 58 16 118/70 96 Intake & Output 01/07 1600 01/07 0800 01/07 0000 01/06 1600 01/06 0801/06 0000 Intake Total 900 600 Output Total 450 Balance 450 600 Intake, IV 300 600 Intake, Oral 600 Output, Stool 200 Output, Urine 250 Patient 150 lb Weight Physical Exam: On general exam patient comfortable sitting out in the chair Head normocephalic atraumatic Eyes sclera anicteric conjunctiva showed no pallor, extraocular muscles muscles were normal Neck no jugular venous distention no thyroid masses no palpable nodes Chest lungs were clear bilaterally Heart regular rhythm with a loud grade 2 to 3/6 ejection systolic murmur all over the precordium. Abdomen soft no organomegaly bowel sounds normal Extremities no clubbing cyanosis or pedal edema. Neurological no gross motor or sensory deficits. Current Medications: Current Medications Sig/Felipe Start time Last Medication Dose Route Stop Time Status Admin Acetaminophen 1,000 MG Q6P PRN 01/05 1200 AC N/A 1 UNIT IV Amlodipine Besylate 5 MG DAILY 01/05 1000 AC 01/07 PO 0912 Chlorhexidine 1 GM .STK-MED ONE 01/06 1125 DC Gluconate TOP 01/06 1126 Dextrose/Sodium 1,000 ML Q13H 01/05 06 DC 01/06 Chloride IV 0926 Heparin Sodium 5,000 UNIT Q8 01/05 0600 AC 01/07 (Porcine) SC 0604 Morphine Sulfate 2 MG Q3P PRN 01/05 0600 AC 01/05 IV 1003 Nebivolol 10 MG DAILY 01/05 1000 AC 01/07 PO 0911 Ondansetron HCl 4 MG Q6P PRN 01/05 0600 AC IV Pantoprazole Sodium 40 MG DAILY 01/05 1000 AC 01/07 IV 0912 Polyethylene Glycol 17 GM DAILY 01/06 1415 AC 01/07 PO 0911 Results Last 48 Hrs of Labs/Mics: Laboratory Tests 01/07/17 0630: Anion Gap 8, Estimated GFR 59 L, BUN/Creatinine Ratio 11.1, CBC w Diff NO MAN DIFF REQ, RBC 4.03 L, MCV 90.4, MCH 30.1, RDW 14.7 H, MPV 9.2, Gran % 69.3, Lymphocytes % 17.7 L, Monocytes % 8.8, Eosinophils % 3.3, Basophils % 0.9, Absolute Granulocytes 5.1, Absolute Lymphocytes 1.3, Absolute Monocytes 0.6, Absolute Eosinophils 0.2, Absolute Basophils 0.1, PUBS MCHC 33.3 Assessment/Plan Assessment/Plan In summary this 86-year-old female was admitted with the following problems #1. Sigmoid volvulus. Treated conservatively and endoscopically. Much improved and tolerating liquids with normal bowel sounds. However surgery is a possibility in future. #2. 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 #3. Left bundle branch block #4. Hypertension #5. Hyperlipidemia #6. History of gallstones in the past. She is stable from a cardiac standpoint. If surgery is needed judicious hydration is suggested and continuation of medications is important. Continue telemetry? Not applicable
[2017-01-07 14:05] VITALS: BP 124/70
[2017-01-07 22:08] VITALS: BP 100/70
[2017-01-08 06:00] VITALS: BP 130/80
--- NOTE | 2017-01-08 08:59 | PN- General Surgery ---
See Addendum Subjective Subjective: HD#3 S/P CSCOPE DECOMPRESSION OF SIGMOID VOLVULUS SITTING UP IN CHAIR THIS AM COMFORTABLE DENEIS CP, SOB, NO N+V WITH DIET DENIES BM SINCE DECOMPRESSION Objective Vital Signs and I&Os Vital Signs Date Time Temp Pulse Resp B/P B/P Pulse O2 O2 Flow FiO2 Mean Ox Delivery Rate 01/08 600 98.2 75 20 130/80 98 Room Air 01/07 2208 98.5 67 20 100/70 97 Room Air 01/07 1405 98.1 77 18 124/70 97 Room Air 01/07 0912 72 138/82 01/07 0911 78 138/82 Intake & Output 01/08 1600 01/08 0801/08 0000 01/07 1600 01/07 0800 01/07 0000 Intake Total 500 100 610 Output Total Balance 500 100 610 Intake, IV 10 Intake, Oral 500 100 600 Patient 150 lb Weight Physical Exam: CV; RRR LUNGS: CLEAR ABD: SOFT, +BS MILD TENDER TO PALP EXT: WARM, DISTAL CMS INATCT Assessment/Plan Assessment/Plan ADVANC DIET TOLERATED OOB/AMBULATE LIKEY D/C LATER TODAY Core Measures/Miscellaneous Venous Thromboembolism VTE Risk Factors: Age > 40 VTE Contraindications: No Contraindications VTE Diagnosis: No VTE Type: NONE VTE Confirmed by (Test): NONE Beta Kwabena Is Beta Kwabena a Home Med? Yes Antibiotics Is Patient on Antibiotics? No
--- NOTE | 2017-01-08 09:22 | PN- Att Addend ---
Attending Addendum Attending Brief Note Patient reports complete resolution of pain. She has no appetite otherwise she is tolerating oral liquids. General Appearance: Alert, No Acute Distress Skin: Grossly normal HEENT: PEERLA Neck: Supple, No JVD Cardiovascular: Systolic Murmurs Lungs: Clear to Auscultation, Normal Air Movement Abdomen: Sluggish bowel sounds Assessment 86-year-old with significant cardiac history having sigmoid volvulus status post reduction of sigmoid volvulus by colonoscopy. Patient this morning is pain-free and tolerating diet. She had bowel movements. plan to discharge later today. Plan Continue other home medications upon discharge Outpatient follow-up in one week Current Medications Sig/Felipe Start time Last Medication Dose Route Stop Time Status Admin Acetaminophen 1,000 MG Q6P PRN 01/05 1200 AC N/A 1 UNIT IV Amlodipine Besylate 5 MG DAILY 01/05 1000 AC 01/08 PO 0919 Heparin Sodium 5,000 UNIT Q8 01/05 0600 AC 01/08 (Porcine) SC 0534 Morphine Sulfate 2 MG Q3P PRN 01/05 0600 AC 01/05 IV 1003 Nebivolol 10 MG DAILY 01/05 1000 AC 01/08 PO 0919 Ondansetron HCl 4 MG Q6P PRN 01/05 0600 AC IV Pantoprazole Sodium 40 MG DAILY 01/05 1000 AC 01/08 IV 0918 Polyethylene Glycol 17 GM DAILY 01/06 1415 AC 01/08 PO 0918 Vital Signs Date Time Temp Pulse Resp B/P B/P Pulse O2 O2 Flow FiO2 Mean Ox Delivery Rate 01/08 09 70 130/82 01/08 0919 130/82 01/08 0600 98.2 75 20 130/80 98 Room Air 01/07 2208 98.5 67 20 100/70 97 Room Air 01/07 1405 98.1 77 18 124/70 97 Room Air
--- NOTE | 2017-01-08 11:12 | RADIOLOGY REPORT ---
EXAMINATION: XR ABDOMEN MULTIPLE VIEWS CLINICAL INDICATION: Follow-up resolved sigmoid volvulus. No bowel movement since decompression. COMPARISON: Prior abdominal x-rays 01/06/2017 TECHNIQUE: 2 views of the abdomen. FINDINGS: There is air-filled bowel loop extending into the right upper quadrant. The bowel gas pattern is otherwise unremarkable. Spondylosis of the lumbosacral spine. IMPRESSION: Dilated air-filled loop of bowel extending into the right upper quadrant in a similar location as the previously noted volvulus. Although the shape of the air-filled bowel loop is not specific for volvulus, given its location and previous appearance on CT this is concerning for possible early recurrent volvulus. Consider follow-up CT if felt clinically indicated. Alternatively serial follow-up radiographs are recommended
--- NOTE | 2017-01-08 13:07 | PN- Cardiology ---
Subjective Subjective: Doing well today. Eating without difficulty. No chest pain, dyspnea, or palpitations. Objective Vital Signs and I&Os Vital Signs Date Time Temp Pulse Resp B/P B/P Pulse O2 O2 Flow FiO2 Mean Ox Delivery Rate 01/08 919 70 130/82 01/08 0919 130/82 01/08 06 98.2 75 20 130/80 98 Room Air 01/07 2208 98.5 67 20 100/70 97 Room Air 01/07 1405 98.1 77 18 124/70 97 Room Air Intake & Output 01/08 1600 01/08 0801/08 0000 01/07 1600 01/07 0800 01/07 0000 Intake Total 500 100 610 Output Total Balance 500 100 610 Intake, IV 10 Intake, Oral 500 100 600 Patient 150 lb Weight Physical Exam: General: no apparent distress. Eyes: No obvious scleral icterus. HEENT: No jugular venous distention or abnormal jugular venous pulsations. Cardiovascular: Normal intensity S1/S2. 3/6 systolic murmur Respiratory: No rales or rhonchi Abdomen: no guarding or rebound tenderness. Musculoskeletal: No clubbing or cyanosis noted, trace edema Skin: warm Current Medications: Current Medications Sig/Felipe Start time Last Medication Dose Route Stop Time Status Admin Acetaminophen 1,000 MG Q6P PRN 01/05 1200 AC N/A 1 UNIT IV Amlodipine Besylate 5 MG DAILY 01/05 1000 AC 01/08 PO 0919 Heparin Sodium 5,000 UNIT Q8 01/05 0600 AC 01/08 (Porcine) SC 0534 Morphine Sulfate 2 MG Q3P PRN 01/05 0600 AC 01/05 IV 1003 Nebivolol 10 MG DAILY 01/05 1000 AC 01/08 PO 0919 Ondansetron HCl 4 MG Q6P PRN 01/05 0600 AC IV Pantoprazole Sodium 40 MG DAILY 01/05 1000 AC 01/08 IV 0918 Polyethylene Glycol 17 GM DAILY 01/06 1415 AC 01/08 PO 0918 Results Last 48 Hrs of Labs/Mics: Laboratory Tests 01/07/17 0630: Anion Gap 8, Estimated GFR 59 L, BUN/Creatinine Ratio 11.1, CBC w Diff NO MAN DIFF REQ, RBC 4.03 L, MCV 90.4, MCH 30.1, RDW 14.7 H, MPV 9.2, Gran % 69.3, Lymphocytes % 17.7 L, Monocytes % 8.8, Eosinophils % 3.3, Basophils % 0.9, Absolute Granulocytes 5.1, Absolute Lymphocytes 1.3, Absolute Monocytes 0.6, Absolute Eosinophils 0.2, Absolute Basophils 0.1, PUBS MCHC 33.3 Recent Imaging Studies: Abd xray: Dilated air-filled loop of bowel extending into the right upper quadrant in a similar location as the previously noted volvulus. Although the shape of the air-filled bowel loop is not specific for volvulus, given its location and previous appearance on CT this is concerning for possible early recurrent volvulus. Consider follow-up CT if felt clinically indicated. Alternatively serial follow-up radiographs are recommended Assessment/Plan Assessment/Plan #1. Sigmoid volvulus. Treated conservatively and endoscopically. Much improved and tolerating liquids with normal bowel sounds. #2. 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 #3. Left bundle branch block #4. Hypertension #5. Hyperlipidemia #6. History of gallstones in the past. Cardiac status remains stable. She is clinically improved and does not appear she will require surgery. Continue cardiac medications. She should follow up in our office after discharge. Please do not hesitate to contact me with any further questions or concerns while she is here in the hospital. Elias Triana MD [facility] Continue telemetry? Not applicable
[2017-01-08 13:53] VITALS: BP 130/64
[2017-01-08 21:51] VITALS: BP 120/66
[2017-01-09 07:29] VITALS: BP 130/74
[2017-01-09 09:19] VITALS: BP 142/84
--- NOTE | 2017-01-09 10:48 | PN- General Surgery ---
See Addendum Subjective Subjective: feeling well. no BM yet. OOB, ambulating. no n/v. tolerating diet. no abd pain Objective Vital Signs and I&Os Vital Signs Date Time Temp Pulse Resp B/P B/P Pulse O2 O2 Flow FiO2 Mean Ox Delivery Rate 01/09 919 78 142/84 01/09 919 78 142/84 01/09 07 98.4 74 20 130/74 98 Room Air 01/08 2151 98.5 80 20 120/66 96 01/08 1353 98.5 73 20 130/64 97 Room Air Intake & Output 01/09 1600 01/09 0800 01/09 0000 01/08 1600 01/08 0800 01/08 0000 Intake Total 120 480 600 500 100 Output Total Balance 120 480 600 500 100 Intake, IV 0 Intake, Oral 120 480 600 500 100 Number 0 Bowel Movements Physical Exam: gen: nad card: s1s2 rrr pulm: ctab abd: soft, nt, +bs ext: calves soft nt Assessment/Plan Assessment/Plan A: HD8, pod2 sp cscope decompression sigmoid volvulus, stable. P: reg diet as tolerated. Dc planning. will dw attending Core Measures/Miscellaneous Venous Thromboembolism VTE Risk Factors: Age > 40 VTE Contraindications: No Contraindications VTE Diagnosis: No VTE Type: NONE VTE Confirmed by (Test): NONE Beta Kwabena Is Beta Kwabena a Home Med? Yes Antibiotics Is Patient on Antibiotics? No
--- NOTE | 2017-01-09 11:01 | Surgical Discharge Summary ---
Visit Information Visit Dates Admission Date: 01/05/17 Discharge Date: 01/09/17 History of Present Illness Chief Complaint: abdominal pain Medical History Blood Transfusion Hx: No Neurological: NONE EENT: hearing loss Cardiovascular: cardiomyopathy, hypertension, hyperlipidemia, mitral regurgitation, LBBB Respiratory: NONE Gastrointestinal: NONE Hepatic: NONE Renal: NONE Musculoskeletal: arthritis Psychiatric: NONE Endocrine: NONE Blood Disorders: NONE Cancer(s): NONE HEALTH TECHNICIAN/Reproductive: NONE History of MRSA: No History of VRE: No History of CDIFF: No Isolation History: Standard Surgical History Pertinent Surgical History: cholecystectomy, RECTAL TEAR tonsillectomy Family History Relations & Conditions If Any: MOTHER Hypertension Psychosocial History Where Do You Live? Home Who Do You Live With? Sister Services at Home: None What is Your Primary Language? Albanian ETOH Use: denies use Review of Systems: not assessed at d/c Hospital Course Course Attending Physician: KETAN JOHNSON,PETER Larson Primary Care Physician: CED GARVEY MD Hospital Course: admitted for sigmoid volvulus seen on imaging studies. Emergent GI consultation obtained and patient taken to endoscopy for detorsion via colonoscopy. Post colonoscopy a long tube was kept in place to prevent recurrence and provide decompression. She improved dramatically and was able to tolerate diet and discharge home. Plan for semi-elective resection as outpatient. Allergies: Coded Allergies: NO KNOWN ALLERGIES (01/05/17) Significant Procedures: sigmoidoscopy with detorsion of volvulus. Disposition Summary Disposition Principal Diagnosis: sigmoid volvulus Additional Diagnosis: none Discharge Disposition: home or self care Discharge Instructions General Discharge Information Code Status: Full Code Patient's Diet: regular Patient's Activity: ad stanley Follow-Up Instructions/Appts: one week to schedule surgery Medications at Discharge Discharge Medications: Continue taking these medications: Amlodipine Besylate (Amlodipine Besylate) 5 MG TABLET 1 Tablet ORAL DAILY Qty = 90 Aspirin (Aspirin*) 81 MG TAB.CHEW 1 Tablet ORAL DAILY Nebivolol HCl (Bystolic) 10 MG TABLET 1 Tablet ORAL DAILY Polyethylene Glycol 3350 (Polyethylene Glycol 3350) 17 GRAM/DOSE POWDER 17 Gram ORAL DAILY as needed for CONSTIPATION Psyllium Hydrophy Sugar Free (Metamucil Fiber Singles Packet) 3.4 GRAM POWD.PACK 1 Packet ORAL DAILY as needed for CONSTIPATION Copies To: MARE JOHNSON,CED [place]
== END 2017-01-09 13:13 | DRG 389 ==
LOC: ERH 01:06 → ERHI 05:37 → 2NA 05:37 → ENRESERV 06:46 → ENTRNSPT 07:18 → 2NA 07:40 → CMPTRNSPT 08:01 → ENPENDDIS 01-09 10:50 → 2NA 01-09 13:13
PROVIDERS: Emergency Medicine; Physician Assistant; ADMIT Surgery
PROC: 0DNN8ZZ Release Sigmoid Colon, Via Natural or Artificial Opening Endoscopic (ICD-10-PCS; principal; 2017-01-05)
DX: K56.2 Volvulus (principal); I42.2 Other hypertrophic cardiomyopathy; I44.7 Left bundle-branch block, unspecified; I34.0 Nonrheumatic mitral (valve) insufficiency; I10 Essential (primary) hypertension; K57.90 Diverticulosis of intestine, part unspecified, without perforation or abscess without bleeding; E78.5 Hyperlipidemia, unspecified; K59.00 Constipation, unspecified; Z90.49 Acquired absence of other specified parts of digestive tract
CPT/HCPCS: 2NAP; 74020; 74177; 81001; 82436; 93005; 93010; 97116-GO; 97161-GP; 97530-GO; J0131; J1644; J2405; J7042